=== PATIENT | female | born 1995 | race African-American/Black ===

== ENCOUNTER 2018-01-14 12:33 | Emergency (ER) | payer MEDICAID ==
[2018-01-14] MEDS ORDERED: LIDOCAINE 1% INJ-PF (10 MG/ML) 30 ML SDV INJ ONE (13:44)
[2018-01-14] MEDS ORDERED: AZITHROMYCIN 250 MG TABLET PO ONE (13:44)
[2018-01-14] MEDS ORDERED: CEFTRIAXONE INJ 250 MG VIAL IM ONE (13:44)
[2018-01-14 14:06] LABS: BACTERIA (WET MOUNT) 4+ BACTERIA SEEN; EPITHELIALS (WET MOUNT) 3+ EPITHELIALS SEEN; T.VAGINALIS (WET MOUNT) NO TRICHOMONAS SEEN; WBCS (WET MOUNT) FEW WBCS SEEN; YEAST (WET MOUNT) NO YEAST SEEN
[2018-01-14 14:07] LABS: APPEARANCE,URINE CLEAR; BILIRUBIN,URINE NEGATIVE (NEGATIVE); COLOR,URINE YELLOW; GLUCOSE, URINE NEGATIVE (NEGATIVE); KETONES,URINE NEGATIVE (NEGATIVE); LEUKOCYTE ESTERASE,URINE TRACE (NEGATIVE); NITRITE,URINE NEGATIVE (NEGATIVE); PROTEIN,URINE NEGATIVE (NEGATIVE); URINE SPECIFIC GRAVITY 1.023; UROBILINOGEN,URINE NEGATIVE mg/dL (<2.0)
--- NOTE | 2018-01-14 14:35 | ER Document Report ---
ED GI/ - General Chief Complaint: Vaginal Discharge Stated Complaint: STD CHECK/VAGINAL PAIN,ODOR Time Seen by Provider: 01/14/18 13:35 Mode of Arrival: Ambulatory Information source: Patient Notes: 22-year-old female presented ED for complaint of brownish vaginal discharge with some odor. She denies any pain. She states her Depo is due soon and she usually gets a little bloody discharge just before it is due. She is here because her significant other or baby father is complaining of penile discharge and pain. They are both here to get tested for STDs. TRAVEL OUTSIDE OF THE [place] IN LAST 30 DAYS: No - HPI Patient complains to provider of: Other - Vaginal discharge and odor Onset: Yesterday Timing/Duration: Gradual Quality of pain: No pain Vaginal bleeding (Compared to normal period): Spotting Sexual history: STD exposure Associated symptoms: Vaginal discharge Exacerbated by: Denies Relieved by: Denies Similar symptoms previously: Yes Recently seen / treated by doctor: No - Related Data Allergies/Adverse Reactions: No Known Allergies Allergy (Verified 01/14/18 12:34) Past Medical History - General Information source: Patient - Social History Smoking Status: Current Every Day Smoker Cigarette use (# per day): Yes - 3 Chew tobacco use (# tins/day): No Smoking Education Provided: Yes - 4 minutes Frequency of alcohol use: None Drug Abuse: None Lives with: Other - Her baby's father Family History: Reviewed & Not Pertinent Patient has suicidal ideation: No Patient has homicidal ideation: No - Past Medical History Cardiac Medical History: Reports: None Pulmonary Medical History: Reports: None EENT Medical History: Reports: None Neurological Medical History: Reports: None Endocrine Medical History: Reports: None Renal/ Medical History: Reports: None Malignancy Medical History: Reports: None GI Medical History: Reports: None Musculoskeltal Medical History: Reports None Skin Medical History: Reports None Psychiatric Medical History: Reports: None Traumatic Medical History: Reports: None Infectious Medical History: Reports: None Surgical Hx: Negative Past Surgical History: Reports: None Review of Systems - Review of Systems Gastrointestinal: No symptoms reported Genitourinary: No symptoms reported Female Genitourinary: Vaginal discharge, Vaginal odor Musculoskeletal: No symptoms reported Skin: No symptoms reported Physical Exam - Vital signs Vitals: Temp Pulse Resp BP Pulse Ox 98.5 F 94 16 147/79 H 98 01/14/18 12:38 01/14/18 12:38 01/14/18 12:38 01/14/18 12:38 01/14/18 12:38 - Abdominal Inspection: Normal Distension: No distension Bowel sounds: Normal Tenderness: Nontender Organomegaly: No organomegaly Notes: Patient states she has a vaginal odor and some spotting because her Depo shot is due soon. She denies any abdominal pain any vaginal pain any pelvic pain. Course - Re-evaluation Re-evalutation: 01/14/18 21:03 And was sent for a urinalysis and patient self swab for GC and chlamydia and wet mount. She was positive for bacterial vaginosis as well as gonorrhea. Patient was treated with Rocephin and azithromycin. Patient and her significant other both called back for results and were told that they were positive for gonorrhea. Both were instructed to abstain from any sexual intercourse for at least 7 days - Vital Signs Vital signs: Temp Pulse Resp BP Pulse Ox 97.8 F 84 18 151/93 H 100 01/14/18 14:37 01/14/18 14:37 01/14/18 14:37 01/14/18 14:37 01/14/18 14:37 - Laboratory Laboratory results interpreted by me: 01/14/18 01/14/18 13:30 13:30 Urine Blood SMALL H Ur Leukocyte Esterase TRACE H N.gonorrhoeae DNA (PCR) DETECTED H Discharge - Discharge Clinical Impression: Bacterial vaginosis, Concern about STD in female without diagnosis Condition: Stable Disposition: HOME, SELF-CARE Instructions: Family Physicians / Practices Additional Instructions: VAGINOSIS, BACTERIAL: Your exam shows you have bacterial vaginosis. This condition is due to an overgrowth of bacteria in the vagina. Symptoms may include vaginal itching or pain, a smelly discharge, and sometimes burning with urination. Normally this is not transmitted by sexual contact. Vaginosis can be treated with oral or topical antibiotics. Metronidazole ( Flagyl) pills are usually effective. Topical vaginal creams include Cleocin and Metro-Gel. You should avoid sexual contact until your symptoms are all better. Call the doctor if you develop pelvic pain, fever, or problems with urination, or if you don't improve as expected. CEPHALOSPORINS: An antibiotic of the cephalosporin class has been prescribed. This type of antibiotic covers a wide variety of infections, including those of the skin, lungs, middle ear, and urinary tract. This antibiotic is somewhat similar to the penicillin family. In rare cases , a person who is allergic to penicillin will also be allergic to this medication. If you have had a severe allergic reaction to penicillin, and have not taken this antibiotic since that time, notify your doctor. Antibiotics which cover many germs ("broad spectrum" antibiotics) are more likely to cause diarrhea or "yeast" infections. Women prone to vaginal yeast problems may suffer an attack after taking this antibiotic. In infants, oral thrush (white spots "stuck" on the cheek) or yeast diaper rash may result. See your doctor if these problems occur. Call the doctor at once if you develop hives, itching, shortness of breath , or lightheadedness. AZITHROMYCIN: Azithromycin (Zithromax) is a broad spectrum antibiotic in the same class as erythromycin. It can treat a variety of bacterial infections, but is most frequently used for respiratory infections. Azithromycin is extremely long-lasting. It accumulates in body tissues and continues to kill bacteria for many days. In order to improve absorption, Azithromycin should be taken at least one hour before or two hours after a meal. It does not have the same strong tendency to upset the stomach as erythromycin and is usually very well tolerated. Patients who have had a rash or other true allergic reactions to erythromycin should not take this medication. Call if you develop gastrointestinal distress, severe diarrhea, rash, hives, itching, or shortness of breath. METRONIDAZOLE: Metronidazole (Flagyl) has been prescribed. This medication is used to kill a type of bacteria called anaerobes, and protozoan parasites such as trichomonas and Giardia. Flagyl often causes a metallic taste in the mouth and mild nausea. Do not use alcohol in any form with Flagyl (including alcohol in medication elixirs). Flagyl interacts with alcohol to cause flushing, palpitations, headache, stomach cramps, and vomiting. Do not use Flagyl if you are taking Antabuse (disulfiram). Call the doctor at once if you develop rash, shortness of breath, itching, or lightheadedness. FOLLOW-UP CARE: If you have been referred to a physician for follow-up care, call the physician s office for an appointment as you were instructed or within the next two days. If you experience worsening or a significant change in your symptoms, notify the physician immediately or return to the Emergency Department at any time for re-evaluation. Prescriptions: Metronidazole [Flagyl 500 mg Tablet] 500 mg PO BID #14 tablet Forms: Elevated Blood Pressure, Smoking Cessation Education
[2018-01-14 14:40] VITALS: BP 151/93
[2018-01-14 15:31] LABS: CHLAM PCR NOT DETECTED (NOT DETECT); GON PCR DETECTED (NOT DETECT)
== END 2018-01-14 14:40 | disposition home or self-care (01) ==
LOC: ER 12:33
DX: N76.0 Acute vaginitis (principal); B96.89 Other specified bacterial agents as the cause of diseases classified elsewhere; Z20.2 Contact with and (suspected) exposure to infections with a predominantly sexual mode of transmission; F17.210 Nicotine dependence, cigarettes, uncomplicated
CPT/HCPCS: 99406; 99283; 96372; 87210; 81025; 81001; 87491; 87591; Q0144; J3490; J0696

== ENCOUNTER 2018-02-23 21:28 | Emergency (ER) | payer MEDICAID ==
[2018-02-24] MEDS ORDERED: AZITHROMYCIN 250 MG TABLET PO ONE (01:32)
[2018-02-24] MEDS ORDERED: CEFTRIAXONE INJ 250 MG VIAL IM ONE (01:33)
[2018-02-24] MEDS ORDERED: LIDOCAINE 1% INJ-PF (10 MG/ML) 30 ML SDV INFIL ONE (01:33)
--- NOTE | 2018-02-24 01:36 | ER Document Report ---
ED General - General Chief Complaint: STD Exposure Stated Complaint: POSSIBLE STD Time Seen by Provider: 02/23/18 23:18 Notes: Patient is a 23-year-old female presents with complaint of exposure to possible STD. Patient says that someone that she slept with an STD from his baby mamma. The patient herself is not her symptoms. No vaginal pain. No abnormal discharge or bleeding. She does have a previous history of STDs. No other complaints this time. No fevers. No pelvic or abdominal pain. TRAVEL OUTSIDE OF THE [place] IN LAST 30 DAYS: No - Related Data Allergies/Adverse Reactions: No Known Allergies Allergy (Verified 02/24/18 00:42) Past Medical History - Social History Smoking Status: Current Every Day Smoker Frequency of alcohol use: None Drug Abuse: None Family History: Reviewed & Not Pertinent Patient has suicidal ideation: No Patient has homicidal ideation: No Renal/ Medical History: Denies: Hx Peritoneal Dialysis Review of Systems - Review of Systems Notes: My Normal Review Basic REVIEW OF SYSTEMS: CONSTITUTIONAL : Denies fever, chills, or sweats. Denies recent illness. GASTROINTESTINAL: Denies abdominal pain. Denies nausea, vomiting, or diarrhea. Denies constipation. Last BM: GENITOURINARY: Denies difficulty urinating, painful urination, burning, frequency, or blood in urine. FEMALE GENITOURINARY: Denies vaginal bleeding, abnormal or irregular periods. MUSCULOSKELETAL: Denies neck or back pain or joint pain or swelling. SKIN: Denies rash or skin lesions. NEUROLOGICAL: Denies altered mental status or loss of consciousness. ALL OTHER SYSTEMS REVIEWED AND NEGATIVE. Physical Exam - Vital signs Vitals: Temp Pulse Resp BP Pulse Ox 98.1 F 110 H 18 129/68 H 98 02/23/18 21:49 02/23/18 21:49 02/23/18 21:49 02/23/18 21:49 02/23/18 21:49 - Notes Notes: General Appearance: Well nourished, alert, cooperative, no acute distress, no obvious discomfort. Vitals: reviewed, See vital signs table. Abdomen: Normal BS, soft, No rigidity, No abdominal tenderness, No guarding, no rebound, Neuro: speech clear, oriented x 3, normal affect, responds appropriately to questions. Course - Re-evaluation Re-evalutation: 02/24/18 04:42 Patient did not want to wait the prolonged period time for her labs come back. She preferred to be prophylactically treated. I did give her the culture callback number to call to get her results. We did treat her with Rocephin and azithromycin. Patient has no symptoms at this time. Patient to return to the ER if she has fevers, pelvic pain, or any abnormal discharge. Patient agrees with plan and will be discharged home. Dictation of this chart was performed using voice recognition software; therefore, there may be some unintended grammatical errors. - Vital Signs Vital signs: Temp Pulse Resp BP Pulse Ox 98.4 F 86 18 140/78 H 100 02/24/18 01:54 02/24/18 01:54 02/23/18 21:49 02/24/18 01:54 02/24/18 01:54 Discharge - Discharge Clinical Impression: STD exposure Condition: Good Disposition: HOME, SELF-CARE Additional Instructions: The testing for the transmitted diseases pending. Please call the #[phone] to obtain results of your testing. You have been treated for gonorrhea chlamydia. Therefore, if Gonorrhea or chlamydia testing is positive for very been treated. If you are positive please inform your sexual partners or partner so that they may be treated and tested as well. Return to the ER for fevers, abnormal vaginal discharge, or pelvic pain.
[2018-02-24 01:39] LABS: CHLAM PCR NOT DETECTED (NOT DETECT); GON PCR NOT DETECTED (NOT DETECT)
[2018-02-24 02:10] VITALS: BP 140/78
== END 2018-02-24 02:13 | disposition home or self-care (01) ==
LOC: ER 21:28
DX: Z20.2 Contact with and (suspected) exposure to infections with a predominantly sexual mode of transmission (principal); F17.200 Nicotine dependence, unspecified, uncomplicated
CPT/HCPCS: 99283; 96372; 87491; 87591; Q0144; J3490; J0696

== ENCOUNTER 2018-06-17 05:46 | Emergency (ER) | payer MEDICAID ==
--- NOTE | 2018-06-17 06:47 | ER Document Report ---
ED General - General Chief Complaint: Vaginal Bleeding Stated Complaint: VAGINAL BLEEDING Time Seen by Provider: 06/17/18 06:15 Notes: Patient is a 23-year-old female that presents to the emergency department for chief complaint of vaginal bleeding and pelvic cramping. Patient states that she started having menstrual bleeding early this morning, and pelvic cramping for most the day yesterday. She states she is usually on Depakote shots for contraception, but has missed her dose last on should have been in the beginning of April which she was unable to get to it has not had one since then. She does not know when her last normal menstrual period is and she thinks she may be , but her last test she took about 1 week ago and that was negative according to the patient. She had some lower abdominal cramping and pelvic pain, she described as an aching sensation and a 3 out of 10, which is now essentially resolved. She denies any vaginal discharge, dysuria hematuria. Denies any fevers, chills, night sweats, nausea, vomiting. Past Medical History: Denies chronic medical conditions Past Surgical History: Denies surgical history Social History: Denies tobacco, alcohol or drug use Family History: Reviewed and noncontributory for presenting illness Allergies: Reviewed, see documented allergy list. REVIEW OF SYSTEMS: Other than noted above, the 12 point review of systems was reviewed with the patient and were negative, all pertinent findings are included in the HPI. PHYSICAL EXAMINATION: Vital signs reviewed, nursing noted reviewed. GENERAL: Well-appearing, well-nourished and in no acute distress. HEAD: Atraumatic, normocephalic. EYES: Eyes appear normal, extraocular movements intact, sclera anicteric, conjunctiva are normal. ENT: nares patent, oropharynx clear without exudates. Moist mucous membranes. NECK: Normal range of motion, supple without lymphadenopathy LUNGS: Breath sounds clear to auscultation bilaterally and equal. No wheezes rales or rhonchi. HEART: Regular rate and rhythm without murmurs ABDOMEN: Soft, nontender, normoactive bowel sounds. No rebound, guarding, or rigidity. No masses appreciated. EXTREMITIES: Nontender, good range of motion, no pitting or edema. NEUROLOGICAL: No focal neurological deficits. Moves all extremities spontaneously Motor and sensory grossly intact on exam. PSYCH: Normal mood, normal affect. SKIN: Warm, Dry, normal turgor, no rashes or lesions noted on exposed skin TRAVEL OUTSIDE OF THE [place] IN LAST 30 DAYS: No - Related Data Allergies/Adverse Reactions: No Known Allergies Allergy (Verified 02/24/18 00:42) Past Medical History - Social History Smoking Status: Never Smoker Family History: Reviewed & Not Pertinent Renal/ Medical History: Denies: Hx Peritoneal Dialysis Physical Exam - Vital signs Vitals: Temp Pulse Resp BP Pulse Ox 98.4 F 102 H 16 146/77 H 94 06/17/18 05:50 06/17/18 05:50 06/17/18 05:50 06/17/18 05:50 06/17/18 05:50 Course - Re-evaluation Re-evalutation: Patient seen and examined vital signs reviewed. Laboratory data and imaging were ordered as appropriate for the patient's presenting symptoms and complaint, with consideration of any critical or life threatening conditions that may be associated with their obtained history and exam as noted above. Results were reviewed when available and demonstrated negative hCG testing in the blood, and her pelvic ultrasound was unremarkable, possible uterine calcification, but would not explain her symptoms, believe the patient is having regular menstrual bleeding, she has been off Depo-Provera shot, she is likely having return of normal menstrual cycles. The patient was re-evaluated and was stable Evaluation was most consistent with menorrhagia, advised follow-up with COUNSELING CASE MANAGER. Results were discussed with the patient at this point, after careful consideration I feel that that patient can be discharged from the emergency department, the patient was educated treatments and reasons to return to the emergency department based on their presumed diagnosis as noted above, they were advised to followup with a primary care physician in 2-3 days. Patient was agreeable to plan of care. *Note is created using voice recognition software and may contain spelling, syntax or grammatical errors. Laboratory 06/17/18 06:37 Beta HCG, Quant < 2.39 Total Beta HCG NEGATIVE Transvaginal US 06/17/18 06:26 IMPRESSION: 1. Suspect small calcification within the myometrium. 2. Otherwise, unremarkable pelvic ultrasound. There is a dominant follicle arising from the right ovary with a maximum dimension of 3.8 cm. No follow-up imaging is recommended. - Vital Signs Vital signs: Temp Pulse Resp BP Pulse Ox 97.9 F 88 16 141/74 H 100 06/17/18 08:41 06/17/18 08:41 06/17/18 05:50 06/17/18 08:41 06/17/18 08:41 - Laboratory Laboratory results interpreted by me: 06/17/18 07:48 Urine Protein 30 H Urine Blood LARGE H Urine Urobilinogen 2.0 H Discharge - Discharge Clinical Impression: Vaginal bleeding Condition: Stable Disposition: HOME, SELF-CARE Instructions: Vaginal Bleeding ([facility]) Additional Instructions: Please follow-up with your COUNSELING CASE MANAGER, monitor for symptoms such as lightheadedness , dizziness, or feeling like you may pass out, if you develop these symptoms, please return to the emergency department sooner. Referrals: [facility] [Provider Group] - Follow up in 3-5 days
--- NOTE | 2018-06-17 07:44 | RADIOLOGY REPORT (SQ) ---
CLINICAL DATA: 23-year-old female with vaginal bleeding and pelvic pain. TECHNICAL DATA: Transvaginal imaging of the pelvis was performed. There are no comparisons. FINDINGS: The uterus is grossly normal in size, shape and echogenicity and measures 9.8 x 6.2 x 4.8 cm. The endometrial complex measures 1.1 cm in thickness. There is no endometrial fluid. There is a small curvilinear area of increased echogenicity within the myometrium with associated posterior acoustical shadowing possibly representing a calcification. The right ovary measures 4.7 x 5.8 x 3.7 cm. The right ovary contains a dominant simple appearing cyst measuring approximately 3.8 x 3.3 x 3.8 cm. This is likely a dominant follicle. Doppler imaging demonstrates normal pulsed and color Doppler flow. The left ovary measures 2.8 x 1.8 x 2.4 cm. The left ovary contains normal follicles. Doppler imaging demonstrates normal pulsed and color Doppler flow. There is no free fluid in the pelvis. The cervix measures 3.9 cm in length. IMPRESSION: 1. Suspect small calcification within the myometrium. 2. Otherwise, unremarkable pelvic ultrasound. There is a dominant follicle arising from the right ovary with a maximum dimension of 3.8 cm. No follow-up imaging is recommended.
[2018-06-17 08:15] LABS: APPEARANCE,URINE SLIGHTLY-CLOUDY; BILIRUBIN,URINE NEGATIVE (NEGATIVE); COLOR,URINE YELLOW; GLUCOSE, URINE NEGATIVE (NEGATIVE); KETONES,URINE NEGATIVE (NEGATIVE); LEUKOCYTE ESTERASE,URINE NEGATIVE (NEGATIVE); NITRITE,URINE NEGATIVE (NEGATIVE); PROTEIN,URINE 30 mg/dL (NEGATIVE); URINE SPECIFIC GRAVITY 1.024
[2018-06-17 08:43] VITALS: BP 141/74
== END 2018-06-17 09:03 | disposition home or self-care (01) ==
LOC: ER 05:46
DX: N93.8 Other specified abnormal uterine and vaginal bleeding (principal); R10.2 Pelvic and perineal pain
CPT/HCPCS: 36415; 76830; 81001; 84702; 93976; 99284

== ENCOUNTER 2018-12-12 15:57 | Emergency (ER) | payer MEDICAID ==
[2018-12-12] MEDS ORDERED: NORMAL SALINE 1000 ML 1,000 ML IV ONE (17:09)
[2018-12-12] MEDS ORDERED: ACETAMINOPHEN 325 MG TABLET PO ONE ×2 (17:09→22:51)
--- NOTE | 2018-12-12 17:13 | ER Document Report ---
ED Medical Screen (RME) - General Chief Complaint: Headache Stated Complaint: BODY PAIN Time Seen by Provider: 12/12/18 17:07 TRAVEL OUTSIDE OF THE [place] IN LAST 30 DAYS: No - HPI Notes: 12/12/18 17:10 Patient is a 23-year-old female with no significant past medical history and no drug allergies who presents complaining of fever, headache, neck pain, back pain that began yesterday about 24 hours ago. Patient states that movement of her head and rotation and flexion make the pain in her neck, back, and had worse. She is still able to eat and drink, but does have a decreased p.o. intake. She is urinating normally and having normal bowel movements. No other recent illness. Patient states that she lives in an apartment complex. She has not been to residential and has not been on airplane recently. No known tick bite. She has not been in the [employer]. Denies URI, CP, SOB, Abd pain, n/v/d, dysuria, or rash. I have treated and performed a rapid initial assessment of this patient. A comprehensive ED assessment and evaluation of the patient, analysis of test results and completion of medical decision making process will be conducted by additional ED providers. PHYSICAL EXAMINATION: GENERAL: Well-appearing, well-nourished and in no acute distress. A&Ox4. Answers questions appropriately. Neck: + tenderness with flexion and lateral rotation. LUNGS: Breath sounds clear to auscultation bilaterally and equal. No wheezes rales or rhonchi. HEART: Regular rate and rhythm without murmurs, rubs, gallops. NEUROLOGICAL: Normal speech, normal gait. PSYCH: Normal mood, normal affect. - Related Data Allergies/Adverse Reactions: No Known Allergies Allergy (Verified 02/24/18 00:42) Past Medical History Renal/ Medical History: Denies: Hx Peritoneal Dialysis Physical Exam - Vital signs Vitals: Temp Pulse Resp BP Pulse Ox 101.0 F H 103 H 20 134/70 H 100 12/12/18 16:38 12/12/18 16:38 12/12/18 16:38 12/12/18 16:38 12/12/18 16:38 Course - Vital Signs Vital signs: Temp Pulse Resp BP Pulse Ox 101.0 F H 103 H 20 134/70 H 100 12/12/18 16:38 12/12/18 16:38 12/12/18 16:38 12/12/18 16:38 12/12/18 16:38
--- NOTE | 2018-12-12 17:52 | RADIOLOGY REPORT (SQ) ---
EXAM DESCRIPTION: CHEST SINGLE VIEW COMPLETED DATE/TIME: 12/12/2018 5:38 pm REASON FOR STUDY: fever COMPARISON: None. EXAM PARAMETERS: NUMBER OF VIEWS: One view. TECHNIQUE: Single frontal radiographic view of the chest acquired. RADIATION DOSE: NA LIMITATIONS: None. FINDINGS: LUNGS AND PLEURA: No opacities, masses or pneumothorax. No pleural effusion. MEDIASTINUM AND HILAR STRUCTURES: No masses. Contour normal. HEART AND VASCULAR STRUCTURES: Heart normal in size. Normal vasculature. BONES: No acute findings. HARDWARE: None in the chest. OTHER: No other significant finding. IMPRESSION: NO ACUTE RADIOGRAPHIC FINDING IN THE CHEST. TECHNICAL DOCUMENTATION: JOB ID: [id number] [employer]- All Rights Reserved Reading location - IP/workstation name: [email or web address]
[2018-12-12 18:07] LABS: ABSOLUTE LYMPHOCYTES (AUTO) 1.3 10^3/uL (0.5-4.7); ABSOLUTE MONOCYTES (AUTO) 0.4 10^3/uL (0.1-1.4); ABSOLUTE NEUT (AUTO) 4.2 10^3/uL (1.7-8.2); BASOPHILS % (AUTO) 0.2 % (0-2); EOSINOPHILS % (AUTO) 0.5 % (0-6); HEMATOCRIT 39.8 % (36.0-47.0); LYMPHOCYTES % (AUTO) 21.2 % (13-45); MEAN CORPUSCULAR HEMOGLOBIN 24.8 pg (27.0-33.4); MEAN CORPUSCULAR HGB CONC 32.6 g/dL (32.0-36.0); MEAN CORPUSCULAR VOLUME 76 fl (80-97); MONOCYTES % (AUTO) 7.1 % (3-13); PLATELET COUNT 354 10^3/uL (150-450); RED BLOOD COUNT 5.23 10^6/uL (3.72-5.28); RED CELL DISTRIBUTION WIDTH 15.5 % (11.5-14.0); TOTAL CELLS COUNTED % (AUTO) 100 %
[2018-12-12 18:21] LABS: ALANINE AMINOTRANSFERASE 28 U/L (9-52); ALBUMIN 3.6 g/dL (3.5-5.0); ALKALINE PHOSPHATASE 54 U/L (38-126); ANION GAP 9 (5-19); ASPARTATE AMINO TRANSFERASE 23 U/L (14-36); BILIRUBIN,DIRECT 0.2 mg/dL (0.0-0.4); BILIRUBIN,TOTAL 0.9 mg/dL (0.2-1.3); BLOOD UREA NITROGEN 5 mg/dL (7-20); CALCIUM 9.4 mg/dL (8.4-10.2); CARBON DIOXIDE 24 mmol/L (22-30); CHLORIDE 107 mmol/L (98-107); GLUCOSE 96 mg/dL (75-110); SODIUM 140.1 mmol/L (137-145); TOTAL PROTEIN 6.5 g/dL (6.3-8.2)
[2018-12-12 18:38] LABS: APPEARANCE,URINE CLEAR; BILIRUBIN,URINE NEGATIVE (NEGATIVE); COLOR,URINE YELLOW; GLUCOSE, URINE NEGATIVE (NEGATIVE); KETONES,URINE NEGATIVE (NEGATIVE); LEUKOCYTE ESTERASE,URINE NEGATIVE (NEGATIVE); NITRITE,URINE NEGATIVE (NEGATIVE); PROTEIN,URINE NEGATIVE (NEGATIVE); URINE SPECIFIC GRAVITY 1.013
--- NOTE | 2018-12-12 22:15 | ER Document Report ---
ED Headache - General Chief Complaint: Headache Stated Complaint: BODY PAIN Time Seen by Provider: 12/12/18 17:07 TRAVEL OUTSIDE OF THE [place] IN LAST 30 DAYS: No - HPI Notes: Patient is a 23-year-old female who presents to the emergency department with a chief complaint of headache. Patient states that 2 days ago she developed a gradual onset of a frontal headache that has been intermittent at times but now more constant. Patient states she has not taken anything at home for her headache. Patient denies any nausea or vomiting. Patient states she has had a decreased appetite because of the pain. Patient denies diarrhea. Patient does complain of neck and mid back pain. Patient denies photosensitivity. Patient states that loud noises seem to worsen the headache. Patient denies joint pain but states yesterday had an episode of "tightening to the top of my right foot which appeared to be muscle related." Patient states that she lives in an apartment complex and has not noticed any bites or rash. Patient states that she does not go anywhere and stays primarily in her apartment. Patient denies being outside for long periods of time or wounds. Patient denies history of migraine headaches. Denies change in vision. - Related Data Allergies/Adverse Reactions: No Known Allergies Allergy (Verified 02/24/18 00:42) Past Medical History - General Information source: Patient - Social History Smoking Status: Unknown if Ever Smoked Cigarette use (# per day): No Chew tobacco use (# tins/day): No Frequency of alcohol use: None Drug Abuse: None Lives with: Spouse/Significant other Family History: Reviewed & Not Pertinent Patient has suicidal ideation: No Patient has homicidal ideation: No - Medical History Medical History: Negative - Past Medical History Cardiac Medical History: Reports: None Pulmonary Medical History: Reports: None EENT Medical History: Reports: None Neurological Medical History: Reports: None Endocrine Medical History: Reports: None Renal/ Medical History: Reports: None. Denies: Hx Peritoneal Dialysis Malignancy Medical History: Reports: None GI Medical History: Reports: None Musculoskeletal Medical History: Reports None Skin Medical History: Reports None Psychiatric Medical History: Reports: None Traumatic Medical History: Reports: None Infectious Medical History: Reports: None Surgical Hx: Negative Past Surgical History: Reports: None Review of Systems - Review of Systems Constitutional: See HPI EENT: See HPI Cardiovascular: No symptoms reported Respiratory: No symptoms reported Gastrointestinal: No symptoms reported Genitourinary: No symptoms reported Female Genitourinary: No symptoms reported Musculoskeletal: See HPI Skin: No symptoms reported Hematologic/Lymphatic: No symptoms reported Neurological/Psychological: No symptoms reported Physical Exam - Vital signs Vitals: Temp Pulse Resp BP Pulse Ox 101.0 F H 103 H 20 134/70 H 100 12/12/18 16:38 12/12/18 16:38 12/12/18 16:38 12/12/18 16:38 12/12/18 16:38 Interpretation: Tachycardic, Febrile - Notes Notes: GENERAL: Well-appearing, well-nourished and in no acute distress. HEAD: Atraumatic, normocephalic. EYES: Pupils equal round and reactive to light, extraocular movements intact, sclera anicteric, conjunctiva are normal. ENT: Right TM slightly reddened - landmarks visible without discharge, perforation or bulging, Left TM normal, nares patent, oropharynx clear without exudates. Moist mucous membranes. NECK: Full ROM, pain to neck with flexion (flexion of neck also induced pain to mid back), no nuchal rigidity, supple without lymphadenopathy or JVD. LUNGS: Breath sounds clear to auscultation bilaterally and equal. No wheezes rales or rhonchi. HEART: Regular rate and rhythm without murmurs, rubs or gallops. ABDOMEN: Soft, nontender, normoactive bowel sounds. No guarding, no rebound. No masses appreciated. EXTREMITIES: Normal range of motion, no pitting or edema. No clubbing or cyanosis. + 2 strong dorsalis pedis pulses bilaterally. NEUROLOGICAL: Cranial nerves II through XII grossly intact. Normal speech, normal gait. PSYCH: Normal mood, normal affect. SKIN: Warm, Dry, normal turgor, no rashes or lesions noted. Face symmetric. Tongue protrudes midline. Extraocular motions intact. Pupils are 3 mm and equally reactive. Normal speech, normal gait. 5 out of 5 strength in both the distal and proximal upper and lower extremities bilaterally. Sensation is grossly intact throughout. Finger to nose testing normal. Pronator drift normal. Normal heal to jade coordination bilaterally. Course - Re-evaluation Re-evalutation: 12/12/18 22:00 Patient's physical assessment was overall benign, patient did have pain with neck flexion which was relieved in normal position. Patient was negative for nuchal rigidity. Patient continues to complain of a headache 3 out of 5 although she states it is much better than earlier. Offered patient IV pain medications. Patient states that she does not want this at this time but will take Tylenol. Informed patient that to rule out possibility of viral or bacterial meningitis a lumbar puncture is recommended as she is having headache with fever. Informed patient that meningitis is potentially life threatening if not treated and depending on the type. Patient states that she does not want a lumbar puncture at this time although she is aware that this is the only way to rule out meningitis. Also informed patient that even though she has not seen any bite milligan or rash she could potentially have [place] spotted fever. Informed patient that the treatment for this is a 2-week dose of the doxycycline. Informed patient that if we did the blood work it would not come back until later next week but that treatment would be initiated. Patient denies wanting blood work but states she will take the doxycycline. Informed patient that it is vital that she returns to the emergency department if her headache becomes severe, she has altered level of consciousness or disorientation, fever, vomiting, no improvement after 24 to 48 hours on doxycycline, or any other new or concerning signs or symptoms. Take Tylenol as needed for pain. We will give first dose of doxycycline in the emergency department after test has resulted. Patient is resting on stretcher appears to be in no acute distress, is texting on her cell phone, patient's overall appearance is nontoxic at this time. Patient did have significant other at the bedside during this conversation. Patient placed on strict return precautions. - Vital Signs Vital signs: Temp Pulse Resp BP Pulse Ox 99.0 F 92 18 145/65 H 100 12/12/18 23:10 12/12/18 23:10 12/12/18 23:10 12/12/18 23:10 12/12/18 23:10 - Laboratory Result Diagrams: 12/12/18 17:30 12/12/18 17:30 Laboratory results interpreted by me: 12/12/18 12/12/18 12/12/18 17:30 17:30 18:25 MCV 76 L MCH 24.8 L RDW 15.5 H BUN 5 L Urine Urobilinogen 4.0 H Urine Ascorbic Acid 40 H 12/13/18 CBC, CMP and urinalysis unremarkable. There was no noted leukocytosis. No signs of a urinary tract infection. - Diagnostic Test Radiology reviewed: Reports reviewed Discharge - Discharge Clinical Impression: Fever Qualifiers: Fever type: unspecified Qualified Code(s): R50.9 - Fever, unspecified Headache Qualifiers: Headache type: unspecified Headache chronicity pattern: acute headache Condition: Stable Disposition: HOME, SELF-CARE Additional Instructions: Today you were seen in the emergency department for headache and fever. Your lab work was unremarkable but it is unsure what is causing your headache fever. After long conversation we have offered you a lumbar puncture to rule out viral or bacterial meningitis. You have politely declined this or any other life th reatening diagnoses that we would need to obtain further testing for. We have also discussed the possibility of [place] spotted fever. At this time you do not want the blood work that tests for this. Instead we have decided to treat you with doxycycline for 2 weeks. It is imperative that you return to the emergency department for any worsening symptoms to include altered level of consciousness, severe headache, vomiting, high fevers, or any other concerning signs or symptoms. If you develop a fever, if the headache is different from any you've previously experienced, or if the headache progressively worsens, then call your physician at once or go to the emergency room. Prescriptions: Doxycycline Hyclate 100 mg PO BID #14 capsule Doxycycline Hyclate 100 mg PO BID #28 capsule
[2018-12-12] MEDS ORDERED: DOXYCYCLINE HYCLATE 100 MG TABLET PO ONE (22:51)
[2018-12-12 23:12] VITALS: BP 145/65
== END 2018-12-12 23:10 | disposition home or self-care (01) ==
LOC: ER 15:57
DX: R50.9 Fever, unspecified (principal); R51 Headache; M79.10 Myalgia, unspecified site; M54.2 Cervicalgia; M54.6 Pain in thoracic spine
CPT/HCPCS: 99283; 96360; 36415; 87040; 87086; 85025; 81025; 80053; 81001; 83605; 71045; J3490 ×2; J7030

== ENCOUNTER 2018-12-13 10:40 | Inpatient (IN) | payer MEDICAID ==
--- NOTE | 2018-12-13 10:53 | ER Document Report ---
ED Medical Screen (RME) - General Chief Complaint: Fever Stated Complaint: BODYACHE Time Seen by Provider: 12/13/18 10:51 Mode of Arrival: Ambulatory Information source: Patient Notes: 23-year-old female presented today for continued fever chills body aches headache neck and back pain. She states she was told yesterday when she came to the ER that she needed a spinal tap but she refused yesterday. She states she went home and she thought about it and realized that she should get the spinal tap completed. She is come back today to get the spinal tap that was recommended. I have greeted and performed a rapid initial assessment of this patient. A comprehensive ED assessment and evaluation of the patient, analysis of test results and completion of medical decision making process will be conducted by an additional ED providers. Dictation of this chart was performed using voice recognition software; therefore, there may be some unintended grammatical errors. TRAVEL OUTSIDE OF THE [place] IN LAST 30 DAYS: No - Related Data Allergies/Adverse Reactions: No Known Allergies Allergy (Verified 12/13/18 10:41) Past Medical History Renal/ Medical History: Denies: Hx Peritoneal Dialysis Physical Exam - Vital signs Vitals: Temp Pulse Resp BP Pulse Ox 98.5 F 115 H 18 146/69 H 99 12/13/18 10:44 12/13/18 10:44 12/13/18 10:44 12/13/18 10:44 12/13/18 10:44 Course - Vital Signs Vital signs: Temp Pulse Resp BP Pulse Ox 98.5 F 115 H 18 146/69 H 99 12/13/18 10:44 12/13/18 10:44 12/13/18 10:44 12/13/18 10:44 12/13/18 10:44
[2018-12-13 11:18] LABS: ABSOLUTE EOSINOPHILS # (AUTO) 0.1 10^3/uL (0.0-0.6); ABSOLUTE LYMPHOCYTES (AUTO) 1.6 10^3/uL (0.5-4.7); ABSOLUTE MONOCYTES (AUTO) 0.4 10^3/uL (0.1-1.4); ABSOLUTE NEUT (AUTO) 2.1 10^3/uL (1.7-8.2); BASOPHILS % (AUTO) 0.5 % (0-2); EOSINOPHILS % (AUTO) 1.3 % (0-6); HEMATOCRIT 39.2 % (36.0-47.0); HEMOGLOBIN 12.8 g/dL (12.0-15.5); LYMPHOCYTES % (AUTO) 39.6 % (13-45); MEAN CORPUSCULAR HGB CONC 32.6 g/dL (32.0-36.0); MEAN CORPUSCULAR VOLUME 77 fl (80-97); MONOCYTES % (AUTO) 8.9 % (3-13); PLATELET COUNT 340 10^3/uL (150-450); RED BLOOD COUNT 5.13 10^6/uL (3.72-5.28); RED CELL DISTRIBUTION WIDTH 15.5 % (11.5-14.0); SEGMENTED NEUTROPHILS % (AUTO) 49.7 % (42-78); TOTAL CELLS COUNTED % (AUTO) 100 %; WHITE BLOOD COUNT 4.1 10^3/uL (4.0-10.5)
[2018-12-13 11:31] LABS: ALANINE AMINOTRANSFERASE 26 U/L (9-52); ALBUMIN 3.8 g/dL (3.5-5.0); ALKALINE PHOSPHATASE 58 U/L (38-126); ANION GAP 9 (5-19); ASPARTATE AMINO TRANSFERASE 21 U/L (14-36); BILIRUBIN,DIRECT 0.2 mg/dL (0.0-0.4); BLOOD UREA NITROGEN 4 mg/dL (7-20); CALCIUM 9.5 mg/dL (8.4-10.2); CARBON DIOXIDE 24 mmol/L (22-30); CHLORIDE 109 mmol/L (98-107); GLUCOSE 131 mg/dL (75-110); POTASSIUM 3.6 mmol/L (3.6-5.0); SODIUM 142.4 mmol/L (137-145); TOTAL PROTEIN 6.1 g/dL (6.3-8.2)
[2018-12-13] MEDS ORDERED: LIDOCAINE 1% INJ-PF (10 MG/ML) 30 ML SDV INJ ONE (11:37)
[2018-12-13] MEDS ORDERED: FENTANYL CITRATE INJ/PF 100 MCG/2 ML AMPUL IV ONE ×2 (12:28→13:03)
[2018-12-13] MEDS ORDERED: LORAZEPAM INJ 2 MG/1 ML VIAL IV ONE (12:29)
[2018-12-13] MEDS ORDERED: FENTANYL CITRATE INJ/PF 100 MCG/2 ML AMPUL ONE (12:57)
[2018-12-13] MEDS ORDERED: RINGERS SOLUTION,LACTATED 1,000 ML IV ONE (13:13)
[2018-12-13] MEDS ORDERED: CEFTRIAXONE 1 GM/D5W RTU 1 GM/50 ML RTUPB IV ONE ×2 (13:13→16:14)
--- NOTE | 2018-12-13 13:33 | ER Document Report ---
Addendum entered and electronically signed by KISHA SERRATO PA-C 12/14/18 19:15: Physical Exam - Physical Exam Vital Signs: Temp Pulse Resp BP Pulse Ox 98.7 F 96 16 143/77 H 100 12/14/18 15:11 12/14/18 15:11 12/14/18 15:11 12/14/18 15:11 12/14/18 15:11 Intake & Output 12/13/18 12/14/18 12/15/18 06:59 06:59 06:59 Intake Total 1050 Balance 1050 Weight 97.9 kg Exam: GENERAL: Alert, interacts well. No acute distress. HEAD: Normocephalic, atraumatic. EYES: Pupils equal, round, and reactive to light. Extraocular movements intact. ENT: Oral mucosa moist, tongue midline. Nares patent, no nasal septal hematoma, TM's intact, nonerythematous, nonbulging bilaterally. Pharynx within normal limits no palatal petechiae noted NECK: Full range of motion despite with pain when patient puts her chin on her chest.. Supple. Trachea midline. LUNGS: Clear to auscultation bilaterally, no wheezes, rales, or rhonchi. No respiratory distress. HEART: Regular rate and rhythm. No murmur ABDOMEN: Soft, non-tender. Non-distended. Bowel sounds present in all 4 quadrants. EXTREMITIES: Moves all 4 extremities spontaneously. No edema, normal radial and dorsalis pedis pulses bilaterally. No cyanosis. BACK: no cervical, thoracic, lumbar midline tenderness. No saddle anesthesia, normal distal neurovascular exam. NEUROLOGICAL: Alert and oriented x3. Normal speech. cranial nerves II through XII grossly intact. PSYCH: Normal affect, normal mood. SKIN: Warm, dry, normal turgor. No rashes or lesions noted. Addendum entered and electronically signed by KISHA SERRATO PA-C 12/14/18 19:14: ED General - General Chief Complaint: Fever Stated Complaint: BODYACHE Time Seen by Provider: 12/13/18 10:51 Mode of Arrival: Ambulatory Notes: Note from Provider seeing the pt. yesterday: Patient is a 23-year-old female who presents to the emergency department with a chief complaint of headache. Patient states that 2 days ago she developed a gradual onset of a frontal headache that has been intermittent at times but now more constant. Patient states she has not taken anything at home for her headache. Patient denies any nausea or vomiting. Patient states she has had a decreased appetite because of the pain. Patient denies diarrhea. Patient does complain of neck and mid back pain. Patient denies photosensitivity. Patient states that loud noises seem to worsen the headache. Patient denies joint pain but states yesterday had an episode of "tightening to the top of my right foot which appeared to be muscle related." Patient states that she lives in an apartment complex and has not noticed any bites or rash. Patient states that she does not go anywhere and stays primarily in her apartment. Patient denies being outside for long periods of time or wounds. Patient denies history of migraine headaches. Denies change in vision. MY HPI: Same as above. Patient states she went home and thought about it and feels as though she should get the lumbar puncture. Patient's denying any fevers currently states she did take Tylenol this morning so she is unsure if she had a fever. Patient continues to complain of generalized headaches frontal nature and also in her cervical region. Patient continues to complain of nuchal rigidity and pain when she puts her chin to her chest. Patient otherwise appears nontoxic and is cooperating well with staff. TRAVEL OUTSIDE OF THE [place] IN LAST 30 DAYS: No - Related Data Allergies/Adverse Reactions: No Known Allergies Allergy (Verified 12/13/18 10:41) Original Note: ED General <DEVIN RICH - Last Filed: 12/13/18 13:36> - General Mode of Arrival: Ambulatory TRAVEL OUTSIDE OF THE [place] IN LAST 30 DAYS: No <KISHA SERRATO - Last Filed: 12/13/18 16:56> - General Chief Complaint: Fever Stated Complaint: BODYACHE Time Seen by Provider: 12/13/18 10:51 - Related Data Allergies/Adverse Reactions: No Known Allergies Allergy (Verified 12/13/18 10:41) Past Medical History - General Information source: Patient - Social History Smoking Status: Never Smoker Family History: Reviewed & Not Pertinent Patient has suicidal ideation: No Patient has homicidal ideation: No Renal/ Medical History: Denies: Hx Peritoneal Dialysis <KISHA SERRATO - Last Filed: 12/13/18 16:56> - Vital signs Vitals: Temp Pulse Resp BP Pulse Ox 98.5 F 115 H 18 146/69 H 99 12/13/18 10:44 12/13/18 10:44 12/13/18 10:44 12/13/18 10:44 12/13/18 10:44 Course - Laboratory Result Diagrams: 12/13/18 10:59 12/13/18 10:59 <DEVIN RICH - Last Filed: 12/13/18 13:36> - Laboratory Result Diagrams: 12/13/18 10:59 12/13/18 10:59 <KSIHA SERRATO - Last Filed: 12/13/18 16:56> - Re-evaluation Re-evalutation: 12/13/18 13:36 Patient was seen and evaluated as requested by [facility]. Patient is a 23-year-old female that reports 3 days of fever with T-max of 102 with associated headache, neck pain and back pain. Denies known exposure to meningitis. Is up-to-date with immunizations. PHYSICAL EXAMINATION: GENERAL: Well-appearing, well-nourished and in no acute distress. HEAD: Atraumatic, normocephalic. EYES: Pupils equal round extraocular movements intact, conjunctiva are normal. ENT: Nares patent NECK: Normal range of motion LUNGS: No respiratory distress Musculoskeletal: Normal range of motion NEUROLOGICAL: Normal speech, normal gait. PSYCH: Normal mood, normal affect. SKIN: Warm, Dry, normal turgor, no rashes or lesions noted. Patient was given fentanyl, Versed prior to lumbar puncture. Multiple attempts at patient's lumbar puncture were performed using multiple spinal needles. Lumbar puncture was unsuccessful. We did attempt to call interventional rad iology which is not hospital today. I did speak to Dr. Zapien anesthesiologist who has agreed to attempt lumbar puncture. She is coming in from home. (DEVIN RICH) 12/13/18 13:33 Discussed case with anesthesia who will come to the emergency department to attempt a lumbar puncture. (KISHA SERRATO) - Vital Signs Vital signs: Temp Pulse Resp BP Pulse Ox 98.5 F 115 H 18 146/69 H 99 12/13/18 10:44 12/13/18 10:44 12/13/18 10:44 12/13/18 10:44 12/13/18 10:44 - Laboratory Laboratory results interpreted by me: 12/13/18 12/13/18 12/13/18 10:59 10:59 13:55 MCV 77 L MCH 25.0 L RDW 15.5 H Chloride 109 H BUN 4 L Creatinine 0.51 L Glucose 131 H Total Protein 6.1 L Urine Urobilinogen CSF WBC 753 H 12/13/18 12/13/18 13:55 15:39 MCV MCH RDW Chloride BUN Creatinine Glucose Total Protein Urine Urobilinogen 2.0 H CSF WBC 358 H Procedures - Lumbar Puncture Lumbar puncture Time completed: 13:38 Consent obtained: Yes Lumbar puncture pre-procedure: Sterile PPE donned, Chloraprep applied Patient position: Sitting Needle size: 14 Lumbar puncture location: L4, L3 Anesthetic type: 1% Lidocaine mL's of anesthetic: 20 Number of attempts: 4 Complications: No <DEVIN RICH - Last Filed: 12/13/18 13:36> - Lumbar Puncture Lumbar puncture Notes: 12/13/18 13:38 Unsuccessful lumbar puncture awaiting anesthesiology (DEVIN RICH) Discharge <DEVIN RICH - Last Filed: 12/13/18 13:36> - Discharge Admitting Provider: Abby (Hospitalist) Unit Admitted: Medical Floor <KISHA SERRATO - Last Filed: 12/13/18 16:56> - Discharge Clinical Impression: Meningitis Condition: Stable Disposition: ADMITTED INPATIENT
[2018-12-13 14:47] LABS: GLUCOSE,CSF 58 mg/dL (40-70); PROTEIN,CSF 50 mg/dL (12-60)
[2018-12-13 15:19] LABS: APPEARANCE ALL TUBES CLEAR; COLOR ALL TUBES COLORLESS; CSF TUBE NUMBER 1; RED BLOOD CELL,CSF 91 /uL (0-10)
[2018-12-13 15:20] LABS: WHITE BLOOD CELL,CSF 753 /uL (0-5)
[2018-12-13 15:22] LABS: APPEARANCE ALL TUBES CLEAR; COLOR ALL TUBES COLORLESS; CSF TUBE NUMBER 4
[2018-12-13 15:23] LABS: RED BLOOD CELL,CSF 7 /uL (0-10); WHITE BLOOD CELL,CSF 358 /uL (0-5)
[2018-12-13 15:38] LABS: MONONUCLEAR CELLS CSF 97 %; POLYMORPHONUCLEAR CELLS CSF 3 %
[2018-12-13 15:40] LABS: MONONUCLEAR CELLS CSF 95 %; POLYMORPHONUCLEAR CELLS CSF 5 %
[2018-12-13] MEDS ORDERED: ACYCLOVIR SODIUM INJ/PF 500 MG/10 ML SDV IV ONE (16:14)
[2018-12-13 16:17] LABS: APPEARANCE,URINE SLIGHTLY-CLOUDY; BILIRUBIN,URINE NEGATIVE (NEGATIVE); COLOR,URINE YELLOW; GLUCOSE, URINE NEGATIVE (NEGATIVE); KETONES,URINE NEGATIVE (NEGATIVE); LEUKOCYTE ESTERASE,URINE NEGATIVE (NEGATIVE); NITRITE,URINE NEGATIVE (NEGATIVE); PROTEIN,URINE NEGATIVE (NEGATIVE); URINE SPECIFIC GRAVITY 1.013
[2018-12-13] MEDS ORDERED: VANCOMYCIN HCL INJ 1000 MG VIAL IV ONE (16:52)
[2018-12-13] MEDS ORDERED: TEMAZEPAM 7.5 MG CAPSULE PO PRN (17:21)
[2018-12-13] MEDS ORDERED: ONDANSETRON HCL INJ/PF 4 MG/2 ML SDV IV PRN (17:21)
[2018-12-13] MEDS ORDERED: ACETAMINOPHEN 650 MG SUPP.RECT PR PRN (17:21)
--- NOTE | 2018-12-13 17:42 | PDOC H&P ---
History of Present Illness Admission Date/PCP: 12/13/18 17:10 Patient complains of: Headache and fever History of Present Illness: YULIA PIZANO is a 23 year old female presents to the emergency room due to acute onset of frontal headache neck and lower back pain started acutely 3 days ago and has been persistent. Associated with high fever up to 102 and mild neck stiffness especially when she tries to move her chin to the chest. Patient came to the emergency room yesterday but declined lumbar puncture and was discharged on doxycycline. Her symptoms persisted and she returned back today. Lumbar puncture was done and was abnormal with high white count low normal glucose high normal protein. Patient is not in the or in school. She does not have any rash. Past Medical History Medical History: None Past Surgical History Past Surgical History: Reports: None Social History Smoking Status: Never Smoker Family History Family History: None Parental Family History Reviewed: Yes Children Family History Reviewed: Yes Sibling(s) Family History Reviewed.: Yes Medication/Allergy Home Medications: Doxycycline Hyclate 100 mg PO BID #14 capsule 12/12/18 Doxycycline Hyclate 100 mg PO BID #28 capsule 12/12/18 Allergies/Adverse Reactions: No Known Allergies Allergy (Verified 12/13/18 10:41) Review of Systems All systems: reviewed and no additional remarkable complaints except as stated Physical Exam Vital Signs: Temp Pulse Resp BP Pulse Ox 98.5 F 115 H 18 146/69 H 99 12/13/18 10:44 12/13/18 10:44 12/13/18 10:44 12/13/18 10:44 12/13/18 10:44 Intake & Output 12/12/18 12/13/18 12/14/18 06:59 06:59 06:59 Intake Total 1050 Balance 1050 Weight 215 lb 13.321 oz Exam: Patient is no acute distress Alert oriented to time place person No anxiety or depression Head: atraumatic normocephalic Pupils: are equal reactive Neck: is supple and trachea is central no lymphadenopathy No pharyngeal erythema or exudates Heart: Regular rate and rhythm Lungs: clear no distress Abdomen: nontender nondistended Neurological exam: unremarkable, no neck rigidity Musculoskeletal: No joint swelling or effusion chronic lower back pain and tenderness No suicidal or homicidal ideation Results Laboratory Results: 12/13/18 10:59 12/13/18 10:59 0512/13/18 12/13/18 10:59 10:59 13:55 WBC 4.1 RBC 5.13 Hgb 12.8 Hct 39.2 MCV 77 L MCH 25.0 L MCHC 32.6 RDW 15.5 H Plt Count 340 Seg Neutrophils % 49.7 Lymphocytes % 39.6 Monocytes % 8.9 Eosinophils % 1.3 Basophils % 0.5 Absolute Neutrophils 2.1 Absolute Lymphocytes 1.6 Absolute Monocytes 0.4 Absolute Eosinophils 0.1 Absolute Basophils 0.0 Sodium 142.4 Potassium 3.6 Chloride 109 H Carbon Dioxide 24 Anion Gap 9 BUN 4 L Creatinine 0.51 L Est GFR ( Amer) > 60 Est GFR (Non-Af Amer) > 60 Glucose 131 H Calcium 9.5 Total Bilirubin 1.0 AST 21 ALT 26 Alkaline Phosphatase 58 Total Protein 6.1 L Albumin 3.8 Urine Color Urine Appearance Urine pH Ur Specific [place] Urine Protein Urine Glucose (UA) Urine Ketones Urine Blood Urine Nitrite Ur Leukocyte Esterase Urine WBC (Auto) Urine RBC (Auto) Fluid Tube Number 1 CSF Volume 4.0 CSF Appearance CLEAR CSF Color COLORLESS CSF WBC 753 H CSF RBC 91 CSF Polymorphonuclear 3 CSF Glucose CSF Total Protein 12/13/18 12/13/18 12/13/18 13:55 13:55 15:39 WBC RBC Hgb Hct MCV MCH MCHC RDW Plt Count Seg Neutrophils % Lymphocytes % Monocytes % Eosinophils % Basophils % Absolute Neutrophils Absolute Lymphocytes Absolute Monocytes Absolute Eosinophils Absolute Basophils Sodium Potassium Chloride Carbon Dioxide Anion Gap BUN Creatinine Est GFR ( Amer) Est GFR (Non-Af Amer) Glucose Calcium Total Bilirubin AST ALT Alkaline Phosphatase Total Protein Albumin Urine Color YELLOW Urine Appearance SLIGHTLY-CLOUDY Urine pH 6.0 Ur Specific [place] 1.013 Urine Protein NEGATIVE Urine Glucose (UA) NEGATIVE Urine Ketones NEGATIVE Urine Blood NEGATIVE Urine Nitrite NEGATIVE Ur Leukocyte Esterase NEGATIVE Urine WBC (Auto) 2 Urine RBC (Auto) 0 Fluid Tube Number 4 CSF Volume 4.0 CSF Appearance CLEAR CSF Color COLORLESS CSF WBC 358 H CSF RBC 7 CSF Polymorphonuclear 5 CSF Glucose 58 CSF Total Protein 50 Assessment and Plan - Diagnosis (1) Meningitis Is this a current diagnosis for this admission?: Yes Plan: Start empiric IV ceftriaxone and IV vancomycin. Consult infectious disease. Follow cultures from CSF. (2) Fever Qualifiers: Fever type: unspecified Qualified Code(s): R50.9 - Fever, unspecified Is this a current diagnosis for this admission?: Yes Plan: Tylenol as needed. (3) Headache Qualifiers: Headache type: unspecified Headache chronicity pattern: acute headache Is this a current diagnosis for this admission?: Yes Plan: Oxycodone as needed.
[2018-12-13] MEDS: OXYCODONE-ACETAMINOPHEN 5-325 MG TABLET PO PRN (18:08)
[2018-12-13] MEDS: RINGERS SOLUTION,LACTATED 1,000 ML IV PRN (20:40)
[2018-12-13] MEDS ORDERED: VANCOMYCIN HCL 2,000 MG in DEXTROSE 5%-WATER 500 ML IV ONE (21:00)
[2018-12-13] MEDS ORDERED: VANCOMYCIN HCL INJ 500 MG VIAL IV SCH (22:00)
[2018-12-13] MEDS ORDERED: CEFTRIAXONE 2 GM/D5W RTU 2 GM/50 ML RTUPB IV SCH (22:00)
[2018-12-13] MEDS: FAMOTIDINE 20 MG TABLET PO SCH (22:42)
[2018-12-14] MEDS ORDERED: DIPHENHYDRAMINE HCL 25 MG CAPSULE ONE (00:16)
[2018-12-14] MEDS ORDERED: DIPHENHYDRAMINE HCL 50 MG CAPSULE PO PRN (00:18)
[2018-12-14] MEDS ORDERED: VANCOMYCIN HCL INJ 500 MG VIAL ONE (00:46)
[2018-12-14] MEDS ORDERED: VANCOMYCIN HCL INJ 1000 MG VIAL ONE (00:46)
[2018-12-14] MEDS ORDERED: VANCOMYCIN HCL INJ 1000 MG VIAL IV PRN (05:00)
[2018-12-14] MEDS: CEFTRIAXONE 2 GM/D5W RTU 2 GM/50 ML RTUPB IV SCH ×2 (05:20→16:31)
[2018-12-14 05:25] LABS: HEMATOCRIT 35.4 % (36.0-47.0); HEMOGLOBIN 11.6 g/dL (12.0-15.5); MEAN CORPUSCULAR HEMOGLOBIN 24.8 pg (27.0-33.4); MEAN CORPUSCULAR HGB CONC 32.9 g/dL (32.0-36.0); MEAN CORPUSCULAR VOLUME 76 fl (80-97); PLATELET COUNT 298 10^3/uL (150-450); RED BLOOD COUNT 4.68 10^6/uL (3.72-5.28); RED CELL DISTRIBUTION WIDTH 15.1 % (11.5-14.0); WHITE BLOOD COUNT 4.6 10^3/uL (4.0-10.5)
[2018-12-14 05:45] LABS: ANION GAP 7 (5-19); BLOOD UREA NITROGEN 4 mg/dL (7-20); CALCIUM 9.3 mg/dL (8.4-10.2); CARBON DIOXIDE 26 mmol/L (22-30); CHLORIDE 108 mmol/L (98-107); GLUCOSE 105 mg/dL (75-110); POTASSIUM 3.9 mmol/L (3.6-5.0)
[2018-12-14] MEDS ORDERED: VANCOMYCIN HCL 1,500 MG in DEXTROSE 5%-WATER 250 ML IV SCH (06:00)
[2018-12-14] MEDS: RINGERS SOLUTION,LACTATED 1,000 ML IV PRN ×2 (06:17→16:31)
[2018-12-14] MEDS: ENOXAPARIN SODIUM INJ 40 MG/0.4 ML DISP.SYRIN SUBCUT SCH (09:48)
[2018-12-14] MEDS: FAMOTIDINE 20 MG TABLET PO SCH ×2 (09:49→21:16)
--- NOTE | 2018-12-14 10:16 | PDOC PROGRESS REPORT ---
Subjective Progress Note for:: 12/14/18 Subjective:: Subjective: YULIA PIZANO is a 23 year old female presents to the emergency room due to acute onset of frontal headache neck and lower back pain started acutely 3 days ago and has been persistent. Associated with high fever up to 102 and mild neck stiffness especially when she tries to move her chin to the chest. Patient came to the emergency room yesterday but declined lumbar puncture and was discharged on doxycycline. Her symptoms persisted and she returned back today. Lumbar puncture was done and was abnormal with high white count low normal glucose high normal protein. Patient is not in the or in school. She does not have any rash. 12/14/2018: Patient is feeling much better. Headache has improved significantly. She has no neck pain. She is afebrile. She has mild lower back pain attributed to lumbar puncture yesterday. Physical Exam Patient is no acute distress Alert oriented to time place person No anxiety or depression Head: atraumatic normocephalic Pupils: are equal reactive Neck: is supple and trachea is central no lymphadenopathy No pharyngeal erythema or exudates Heart: Regular rate and rhythm Lungs: clear no distress Abdomen: nontender nondistended Neurological exam: unremarkable, no neck rigidity Musculoskeletal: No joint swelling or effusion chronic lower back pain and tenderness No suicidal or homicidal ideation Assessment and Plan (1) Meningitis Is this a current diagnosis for this admission?: Yes Plan: 12/13/2018: Start empiric IV ceftriaxone and IV vancomycin. Consult infectious disease. Follow cultures from CSF. 12/14/2018: Continue antibiotics. Follow cultures. (2) Fever Qualifiers: Fever type: unspecified Qualified Code(s): R50.9 - Fever, unspecified Is this a current diagnosis for this admission?: Yes Plan: 12/13/2018: Tylenol as needed. 12/14/2018: She is currently afebrile. (3) Headache Qualifiers: Headache type: unspecified Headache chronicity pattern: acute headache Is this a current diagnosis for this admission?: Yes Plan: 12/13/2018: Oxycodone as needed. 12/14/2018: Headache significantly improved. Reason For Visit: MENINGITIS Physical Exam Vital Signs: Temp Pulse Resp BP Pulse Ox 98.2 F 77 15 126/53 H 100 12/14/18 08:08 12/14/18 08:08 12/14/18 08:08 12/14/18 08:08 12/14/18 08:08 Intake & Output 12/13/18 12/14/18 12/15/18 06:59 06:59 06:59 Intake Total 3773 Balance 3773 Weight 225 lb 15.581 oz Results Laboratory Results: 12/14/18 05:09 12/14/18 05:09 12/13/18 12/13/18 12/13/18 10:59 10:59 13:55 WBC 4.1 RBC 5.13 Hgb 12.8 Hct 39.2 MCV 77 L MCH 25.0 L MCHC 32.6 RDW 15.5 H Plt Count 340 Seg Neutrophils % 49.7 Lymphocytes % 39.6 Monocytes % 8.9 Eosinophils % 1.3 Basophils % 0.5 Absolute Neutrophils 2.1 Absolute Lymphocytes 1.6 Absolute Monocytes 0.4 Absolute Eosinophils 0.1 Absolute Basophils 0.0 Sodium 142.4 Potassium 3.6 Chloride 109 H Carbon Dioxide 24 Anion Gap 9 BUN 4 L Creatinine 0.51 L Est GFR ( Amer) > 60 Est GFR (Non-Af Amer) > 60 Glucose 131 H Calcium 9.5 Total Bilirubin 1.0 AST 21 ALT 26 Alkaline Phosphatase 58 Total Protein 6.1 L Albumin 3.8 Urine Color Urine Appearance Urine pH Ur Specific [place] Urine Protein Urine Glucose (UA) Urine Ketones Urine Blood Urine Nitrite Ur Leukocyte Esterase Urine WBC (Auto) Urine RBC (Auto) Fluid Tube Number 1 CSF Volume 4.0 CSF Appearance CLEAR CSF Color COLORLESS CSF WBC 753 H CSF RBC 91 CSF Polymorphonuclear 3 CSF Glucose CSF Total Protein 12/13/18 12/13/18 12/13/18 13:55 13:55 15:39 WBC RBC Hgb Hct MCV MCH MCHC RDW Plt Count Seg Neutrophils % Lymphocytes % Monocytes % Eosinophils % Basophils % Absolute Neutrophils Absolute Lymphocytes Absolute Monocytes Absolute Eosinophils Absolute Basophils Sodium Potassium Chloride Carbon Dioxide Anion Gap BUN Creatinine Est GFR ( Amer) Est GFR (Non-Af Amer) Glucose Calcium Total Bilirubin AST ALT Alkaline Phosphatase Total Protein Albumin Urine Color YELLOW Urine Appearance SLIGHTLY-CLOUDY Urine pH 6.0 Ur Specific [place] 1.013 Urine Protein NEGATIVE Urine Glucose (UA) NEGATIVE Urine Ketones NEGATIVE Urine Blood NEGATIVE Urine Nitrite NEGATIVE Ur Leukocyte Esterase NEGATIVE Urine WBC (Auto) 2 Urine RBC (Auto) 0 Fluid Tube Number 4 CSF Volume 4.0 CSF Appearance CLEAR CSF Color COLORLESS CSF WBC 358 H CSF RBC 7 CSF Polymorphonuclear 5 CSF Glucose 58 CSF Total Protein 50 12/14/18 12/14/18 05:09 05:09 WBC 4.6 RBC 4.68 Hgb 11.6 L Hct 35.4 L MCV 76 L MCH 24.8 L MCHC 32.9 RDW 15.1 H Plt Count 298 Seg Neutrophils % Lymphocytes % Monocytes % Eosinophils % Basophils % Absolute Neutrophils Absolute Lymphocytes Absolute Monocytes Absolute Eosinophils Absolute Basophils Sodium 141.0 Potassium 3.9 Chloride 108 H Carbon Dioxide 26 Anion Gap 7 BUN 4 L Creatinine 0.56 Est GFR ( Amer) > 60 Est GFR (Non-Af Amer) > 60 Glucose 105 Calcium 9.3 Total Bilirubin AST ALT Alkaline Phosphatase Total Protein Albumin Urine Color Urine Appearance Urine pH Ur Specific [place] Urine Protein Urine Glucose (UA) Urine Ketones Urine Blood Urine Nitrite Ur Leukocyte Esterase Urine WBC (Auto) Urine RBC (Auto) Fluid Tube Number CSF Volume CSF Appearance CSF Color CSF WBC CSF RBC CSF Polymorphonuclear CSF Glucose CSF Total Protein Assessment and Plan - Diagnosis (1) Meningitis Is this a current diagnosis for this admission?: Yes (2) Fever Qualifiers: Fever type: unspecified Qualified Code(s): R50.9 - Fever, unspecified Is this a current diagnosis for this admission?: Yes (3) Headache Qualifiers: Headache type: unspecified Headache chronicity pattern: acute headache Is this a current diagnosis for this admission?: Yes
[2018-12-14] MEDS: VANCOMYCIN HCL 1,250 MG in DEXTROSE 5%-WATER 250 ML IV SCH ×2 (14:37→21:17)
[2018-12-14] MEDS: OXYCODONE-ACETAMINOPHEN 5-325 MG TABLET PO PRN (16:30)
[2018-12-15] MEDS: VANCOMYCIN HCL 1,250 MG in DEXTROSE 5%-WATER 250 ML IV SCH ×3 (05:49→21:52)
[2018-12-15] MEDS: CEFTRIAXONE 2 GM/D5W RTU 2 GM/50 ML RTUPB IV SCH ×2 (05:49→16:11)
[2018-12-15] MEDS ORDERED: ACETAMINOPHEN 325 MG TABLET PO PRN (08:11)
[2018-12-15] MEDS: ENOXAPARIN SODIUM INJ 40 MG/0.4 ML DISP.SYRIN SUBCUT SCH (09:44)
[2018-12-15] MEDS: FAMOTIDINE 20 MG TABLET PO SCH ×2 (09:45→21:52)
--- NOTE | 2018-12-15 13:47 | PDOC PROGRESS REPORT ---
Subjective Progress Note for:: 12/15/18 Subjective:: 23 year old female presents to the emergency room due to acute onset of frontal headache neck and lower back pain started acutely 3 days ago and has been persistent. Associated with high fever up to 102 and mild neck stiffness especially when she tries to move her chin to the chest. Patient came to the emergency room yesterday but declined lumbar puncture and was discharged on doxycycline. Her symptoms persisted and she returned back today. Lumbar puncture was done and was abnormal with high white count low normal glucose high normal protein. Patient is not in the or in school. She does not have any rash. 12/14/2018: Patient is feeling much better. Headache has improved significantly. She has no neck pain. She is afebrile. She has mild lower back pain attributed to lumbar puncture yesterday. 12/15/[id number]-wogh-old female admitted with severe headaches and back pain status post LP was done. Issues CSF fluid shows increased WBC count low normal glucose and high normal protein. So far the cultures are negative patient was started on IV Rocephin and IV vancomycin , On the IV line came off last night patient is refusing to be stuck again refusing to have antibiotics. Patient understand that she need IV antibiotic therapy but after 5 or 6 unsuccessful attempts putting a IV line patient is refusing the attempts for further IV access. And understood the consequences of refusing the antibiotics but she wants to wait until the final report is available. and Mary Jo nurse aviation boatswain's mate tried to convince the patient to have IV access but our attempts are unsuccessful. Reason For Visit: MENINGITIS Physical Exam Vital Signs: Temp Pulse Resp BP Pulse Ox 98.6 F 84 14 139/65 H 100 12/15/18 08:00 12/15/18 08:00 12/15/18 08:00 12/15/18 08:00 12/15/18 08:00 Intake & Output 12/14/18 12/15/18 12/16/18 06:59 06:59 06:59 Intake Total 3773 1150 1000 Balance 3773 1150 1000 Weight 102.5 kg 99.9 kg General appearance: PRESENT: no acute distress, obese Head exam: PRESENT: atraumatic Eye exam: PRESENT: PERRLA Mouth exam: PRESENT: moist, tongue midline Neck exam: ABSENT: carotid bruit, JVD, lymphadenopathy, thyromegaly Respiratory exam: PRESENT: clear to auscultation tai. ABSENT: rales, rhonchi, wheezes Cardiovascular exam: PRESENT: RRR. ABSENT: diastolic murmur, rubs, systolic murmur GI/Abdominal exam: PRESENT: normal bowel sounds, soft. ABSENT: distended, guarding, mass, organolmegaly, rebound, tenderness Rectal exam: PRESENT: deferred Neurological exam: PRESENT: alert, awake, oriented to person, oriented to place, oriented to time, oriented to situation, CN II-XII grossly intact. ABSENT: motor sensory deficit Psychiatric exam: PRESENT: appropriate affect, normal mood. ABSENT: homicidal ideation, suicidal ideation Results Laboratory Results: 12/14/18 05:09 12/14/18 05:09 12/13/18 15:39 Clean Catch Midstream Urine Culture - Final NO GROWTH 2 DAYS Assessment and Plan - Diagnosis (1) Meningitis Is this a current diagnosis for this admission?: Yes Plan: Start empiric IV ceftriaxone and IV vancomycin. Consult infectious disease. Follow cultures from CSF. 12/15/2018-patient was started on empiric IV Rocephin and IV vancomycin patient is refusing the IV antibiotics from last night. Consultation with ID was requested . Cultures urine culture CSF culture are negative so far. (2) Fever Qualifiers: Fever type: unspecified Qualified Code(s): R50.9 - Fever, unspecified Is this a current diagnosis for this admission?: Yes Plan: Tylenol as needed. 12/15/2018-patient came in with fever latest temperature is 98.4. T-max is 99.2. As mentioned above patient refusing IV antibiotic therapy. (3) Headache Qualifiers: Headache type: unspecified Headache chronicity pattern: acute headache Is this a current diagnosis for this admission?: Yes Plan: Oxycodone as needed. 12/15/2018-patient came with complaint severe headaches this morning complaining of minimal headache in the range of 1 to 2 / 10. Plan is to continue oxycodone. (4) Obesity (BMI 30-39.9) Is this a current diagnosis for this admission?: No Plan: 12/15/2018-patient came in with a BMI of more than 35 diet exercise weight loss lifestyle modifications are discussed with the patient. - Time Time Spent with patient: 15-24 minutes Medications reviewed and adjusted accordingly: Yes Anticipated discharge: Home
[2018-12-16 05:04] LABS: ABSOLUTE EOSINOPHILS # (AUTO) 0.2 10^3/uL (0.0-0.6); ABSOLUTE LYMPHOCYTES (AUTO) 2.1 10^3/uL (0.5-4.7); ABSOLUTE MONOCYTES (AUTO) 0.5 10^3/uL (0.1-1.4); ABSOLUTE NEUT (AUTO) 1.8 10^3/uL (1.7-8.2); BASOPHILS % (AUTO) 0.5 % (0-2); EOSINOPHILS % (AUTO) 4.1 % (0-6); HEMATOCRIT 37.2 % (36.0-47.0); HEMOGLOBIN 12.2 g/dL (12.0-15.5); LYMPHOCYTES % (AUTO) 45.7 % (13-45); MEAN CORPUSCULAR HEMOGLOBIN 24.9 pg (27.0-33.4); MEAN CORPUSCULAR HGB CONC 32.8 g/dL (32.0-36.0); MEAN CORPUSCULAR VOLUME 76 fl (80-97); MONOCYTES % (AUTO) 10.7 % (3-13); PLATELET COUNT 296 10^3/uL (150-450); RED CELL DISTRIBUTION WIDTH 15.6 % (11.5-14.0); TOTAL CELLS COUNTED % (AUTO) 100 %; WHITE BLOOD COUNT 4.6 10^3/uL (4.0-10.5)
[2018-12-16 05:26] LABS: ALANINE AMINOTRANSFERASE 28 U/L (9-52); ALBUMIN 3.5 g/dL (3.5-5.0); ALKALINE PHOSPHATASE 63 U/L (38-126); ANION GAP 8 (5-19); ASPARTATE AMINO TRANSFERASE 19 U/L (14-36); BILIRUBIN,DIRECT 0.1 mg/dL (0.0-0.4); BILIRUBIN,TOTAL 0.5 mg/dL (0.2-1.3); BLOOD UREA NITROGEN 7 mg/dL (7-20); CALCIUM 9.6 mg/dL (8.4-10.2); CARBON DIOXIDE 26 mmol/L (22-30); CHLORIDE 107 mmol/L (98-107); GLUCOSE 102 mg/dL (75-110); POTASSIUM 4.4 mmol/L (3.6-5.0); SODIUM 141.3 mmol/L (137-145); TOTAL PROTEIN 6.1 g/dL (6.3-8.2)
[2018-12-16] MEDS: CEFTRIAXONE 2 GM/D5W RTU 2 GM/50 ML RTUPB IV SCH (05:44)
[2018-12-16] MEDS: VANCOMYCIN HCL 1,250 MG in DEXTROSE 5%-WATER 250 ML IV SCH (05:44)
[2018-12-16] MEDS: ENOXAPARIN SODIUM INJ 40 MG/0.4 ML DISP.SYRIN SUBCUT SCH (09:04)
[2018-12-16] MEDS: FAMOTIDINE 20 MG TABLET PO SCH (09:04)
[2018-12-16 10:05] VITALS: BP 143/61
[2018-12-16 11:37] LABS: HSV I DNA Negative (Negative); HSV II DNA Positive (Negative)
--- NOTE | 2018-12-16 12:45 | PDOC DISCHARGE SUMMARY ---
General - Admit/Disc Date/PCP Admission Date/Primary Care Provider: 12/13/18 17:10 Discharge Date: 12/16/18 - Discharge Diagnosis (1) Meningitis Is this a current diagnosis for this admission?: Yes Summary: Start empiric IV ceftriaxone and IV vancomycin. Consult infectious disease. Follow cultures from CSF. 12/15/2018-patient was started on empiric IV Rocephin and IV vancomycin patient is refusing the IV antibiotics from last night. Consultation with ID was requested . Cultures urine culture CSF culture are negative so far. 12/16/2018-patient came in with severe headaches and back pain and lumbar puncture was done started on IV vancomycin and IV Rocephin LP fluid shows increased WBC the impression at the time of admission his white/aseptic meningitis CSF cultures and blood cultures came back negative. Since yesterday patient refused IV antibiotic therapy because we lost the IV line patient refused to be stick to multiple times. This morning denies any complaints denies any headaches denies any dizzy spells denies any back pain physical examination there is no right neck rigidity and no signs of any meningeal symptoms. Patient says she has doxycycline at home she prefers to continue that medication. I strongly advised her to follow-up with primary care physician in 3 to 5 days. (2) Fever Is this a current diagnosis for this admission?: Yes Summary: Tylenol as needed. 12/15/2018-patient came in with fever latest temperature is 98.4. T-max is 99.2. As mentioned above patient refusing IV antibiotic therapy. 12/16/2018-patient is afebrile for the last 48 hours. Temperature is 98.1. No signs and symptoms of meningitis noticed today. Patient is going home today. (3) Headache Is this a current diagnosis for this admission?: Yes Summary: Oxycodone as needed. 12/15/2018-patient came with complaint severe headaches this morning complaining of minimal headache in the range of 1 to 2 / 10. Plan is to continue oxycodone. 12/16/[id number]-aife-old female came in with severe headaches and back pains. High suspicion for meningitis LP was done the cultures came back negative. Headache was resolved. Patient is asymptomatic for the last 48 hours. Patient is going home today. (4) Obesity (BMI 30-39.9) Is this a current diagnosis for this admission?: No Summary: 12/15/2018-patient came in with a BMI of more than 35 diet exercise weight loss lifestyle modifications are discussed with the patient. - Additional Information Resuscitation Status: Full Code Discharge Diet: Cardiac Discharge Activity: Activity As Tolerated Home Medications: No Home Medications 12/14/18 History of Present Illness History of Present Illness: YULIA PIZANO is a 23 year old female 23 year old female presents to the emergency room due to acute onset of frontal headache neck and lower back pain started acutely 3 days ago and has been persistent. Associated with high fever up to 102 and mild neck stiffness especially when she tries to move her chin to the chest. Patient came to the emergency room yesterday but declined lumbar puncture and was discharged on doxycycline. Her symptoms persisted and she returned back today. Lumbar puncture was done and was abnormal with high white count low normal glucose high normal protein. Patient is not in the or in school. She does not have any rash. Hospital Course Hospital Course: 12/[id number]-vule-old female admitted on 12/13/2018 with complaints of severe headaches and back pain started on IV antibiotic therapy IV Rocephin and IV vancomycin after lumbar puncture was done no complications during the hospital course. Patient refused IV antibiotic therapy from yesterday because she does n ot want to be stick to many times for IV access. Fortunately cultures came back negative. Patient is asymptomatic. She is going home today. Physical Exam Vital Signs: Temp Pulse Resp BP Pulse Ox 98.1 F 70 17 143/61 H 100 12/16/18 10:04 12/16/18 10:04 12/16/18 10:04 12/16/18 10:04 12/16/18 10:04 Intake & Output 12/15/18 12/16/18 12/17/18 06:59 06:59 06:59 Intake Total 1150 2880 Balance 1150 2880 Weight 99.9 kg 101.9 kg General appearance: PRESENT: no acute distress, obese Head exam: PRESENT: atraumatic Eye exam: PRESENT: PERRLA Mouth exam: PRESENT: moist, tongue midline Teeth exam: PRESENT: poor dentation Neck exam: ABSENT: carotid bruit, JVD, lymphadenopathy, thyromegaly Respiratory exam: PRESENT: clear to auscultation tai. ABSENT: rales, rhonchi, wheezes Cardiovascular exam: PRESENT: RRR. ABSENT: diastolic murmur, rubs, systolic murmur GI/Abdominal exam: PRESENT: normal bowel sounds, soft. ABSENT: distended, guarding, mass, organolmegaly, rebound, tenderness Rectal exam: PRESENT: deferred Neurological exam: PRESENT: alert, awake, oriented to person, oriented to place, oriented to time, oriented to situation, CN II-XII grossly intact. ABSENT: motor sensory deficit Psychiatric exam: PRESENT: appropriate affect, normal mood. ABSENT: homicidal ideation, suicidal ideation Results Laboratory Results: 12/16/18 04:28 12/16/18 04:28 12/16/18 12/16/18 04:28 04:28 WBC 4.6 RBC 4.90 Hgb 12.2 Hct 37.2 MCV 76 L MCH 24.9 L MCHC 32.8 RDW 15.6 H Plt Count 296 Seg Neutrophils % 39.0 L Lymphocytes % 45.7 H Monocytes % 10.7 Eosinophils % 4.1 Basophils % 0.5 Absolute Neutrophils 1.8 Absolute Lymphocytes 2.1 Absolute Monocytes 0.5 Absolute Eosinophils 0.2 Absolute Basophils 0.0 Sodium 141.3 Potassium 4.4 Chloride 107 Carbon Dioxide 26 Anion Gap 8 BUN 7 Creatinine 0.57 Est GFR ( Amer) > 60 Est GFR (Non-Af Amer) > 60 Glucose 102 Calcium 9.6 Magnesium 1.7 Total Bilirubin 0.5 AST 19 ALT 28 Alkaline Phosphatase 63 Total Protein 6.1 L Albumin 3.5 12/13/18 13:55 Cerebral Spinal Fluid - Tube 3 (Csf) Gram Stain - Final 12/13/18 13:55 Cerebral Spinal Fluid - Tube 3 (Csf) CSF Culture - Final NO GROWTH 3 DAYS 12/13/18 15:39 Clean Catch Midstream Urine Culture - Final NO GROWTH 2 DAYS Qualifiers - * PATIENT BEING DISCHARGED WITH ANY OF THE FOLLOWING DIAGNOSIS: No VTE patient discharged on overlapping Therapy?: No Acute Heart Failure Is this a Heart Failure Patient?: No Plan Discharge Plan: Patient is discharged home today. Time Spent: Less than 30 Minutes
== END 2018-12-16 10:27 | disposition home or self-care (01) | DRG 99 ==
LOC: ER 10:40 → EH 17:10 → 4N 18:57
PROVIDERS: ADMIT Family Medicine; ATTEND Family Medicine
PROC: 009U3ZX Drainage of Spinal Canal, Percutaneous Approach, Diagnostic (ICD-10-PCS; principal; 2018-12-13)
DX: G03.9 Meningitis, unspecified (principal); E66.9 Obesity, unspecified; Z68.35 Body mass index [BMI] 35.0-35.9, adult; Z79.899 Other long term (current) drug therapy
CPT/HCPCS: 36415; 80048; 80053; 81001; 82945; 83735; 84157; 85025; 85027; 87040; 87070; 87086; 87205; 87529; 89050; 96361; 96365; 96375; 99284; J0133; J0696; J2060; J3010; J3370; J3490; J7060; J7120

== ENCOUNTER 2019-08-18 16:15 | Emergency (ER) | payer MEDICAID ==
[2019-08-18] MEDS ORDERED: DEXAMETHASONE SOD PHOS INJ 10 MG/1 ML VIAL IV ONE (17:02)
[2019-08-18] MEDS ORDERED: KETOROLAC TROMETHAMINE INJ/PF 30 MG/1 ML SDV IV ONE (17:02)
[2019-08-18] MEDS ORDERED: NORMAL SALINE 1000 ML 1,000 ML IV ONE (17:02)
--- NOTE | 2019-08-18 17:03 | ER Document Report ---
ED ENT - General Chief Complaint: Sore Throat Stated Complaint: SORE THROAT Time Seen by Provider: 08/18/19 16:55 Primary Care Provider: BALAJI OLSON MD [ACTIVE STAFF] - Follow up as needed Mode of Arrival: Ambulatory Information source: Patient Notes: 24-year-old female presented to ED for sore throat. She states that her throat is very sore and is making her left ear hurt. She states a couple weeks ago her right side of her throat was painful and causing her left right ear to hurt now the left side is. Both tonsils are equally swollen with exudate. She denies any fevers. She states she is having some congestion and some mucus. She does have swollen nasal turbinates as well. TRAVEL OUTSIDE OF THE [place] IN LAST 30 DAYS: No - HPI Patient complains to provider of: Throat problem Onset: Other Onset/Duration: Gradual - 2 weeks, Intermittent Severity: Moderate Pain Level: 3 Context: Recent Illness Location of pain: Ears, Sinus, Throat Associated symptoms: Ear pain, Runny nose, Sinus pain, Sinus drainage, Sore throat. denies: Ear drainage, Ear trauma Similar symptoms previously: Yes Recently seen / treated by doctor: No - Related Data Allergies/Adverse Reactions: No Known Allergies Allergy (Verified 12/13/18 10:41) Past Medical History - General Information source: Patient - Social History Smoking Status: Never Smoker Frequency of alcohol use: None Lives with: Family Family History: None, Reviewed & Not Pertinent Patient has suicidal ideation: No Patient has homicidal ideation: No - Past Medical History Cardiac Medical History: Reports: None Pulmonary Medical History: Reports: None EENT Medical History: Reports: None Neurological Medical History: Reports: None Endocrine Medical History: Reports: None Renal/ Medical History: Reports: None Malignancy Medical History: Reports: None GI Medical History: Reports: None Musculoskeletal Medical History: Reports None Skin Medical History: Reports None Psychiatric Medical History: Reports: None Traumatic Medical History: Reports: None Infectious Medical History: Reports: None - Immunizations Immunizations up to date: Yes Hx Diphtheria, Pertussis, Tetanus Vaccination: Yes Review of Systems - Review of Systems Constitutional: Chills, Recent illness EENT: No symptoms reported, Ear pain, Nose pain, Nose congestion, Nose dischar ge, Sinus pressure, Throat pain Cardiovascular: No symptoms reported Respiratory: No symptoms reported, Cough Gastrointestinal: No symptoms reported Genitourinary: No symptoms reported Female Genitourinary: No symptoms reported Musculoskeletal: No symptoms reported Skin: No symptoms reported Hematologic/Lymphatic: No symptoms reported Neurological/Psychological: No symptoms reported -: Yes All other systems reviewed and negative Physical Exam - Vital signs Vitals: Temp Pulse Resp BP Pulse Ox 100.2 F 119 H 18 150/87 H 99 08/18/19 16:19 08/18/19 16:19 08/18/19 16:19 08/18/19 16:19 08/18/19 16:19 Interpretation: Normal - General General appearance: Appears well, Alert - HEENT Head: Normocephalic, Atraumatic Eyes: Normal Pupils: PERRL Ears: Normal External canal: Normal Tympanic membrane: Normal Sinus: Normal Nasal: Swelling, Clear rhinorrhea Mouth/Lips: Normal Mucous membranes: Normal Pharynx: Normal Neck: Normal - Respiratory Respiratory status: No respiratory distress Chest status: Nontender Breath sounds: Normal Chest palpation: Normal - Cardiovascular Rhythm: Regular Heart sounds: Normal auscultation Murmur: No - Abdominal Inspection: Normal Distension: No distension Bowel sounds: Normal Tenderness: Nontender Organomegaly: No organomegaly - Back Back: Normal, Nontender - Extremities General upper extremity: Normal inspection, Nontender, Normal color, Normal ROM, Normal temperature General lower extremity: Normal inspection, Nontender, Normal color, Normal ROM, Normal temperature, Normal weight bearing. No: Tino's sign - Neurological Neuro grossly intact: Yes Cognition: Normal Orientation: AAOx4 Tamika Coma Scale Eye Opening: Spontaneous Tamika Coma Scale Verbal: Oriented Onward Coma Scale Motor: Obeys Commands Tamika Coma Scale Total: 15 Speech: Normal Motor strength normal: LUE, RUE, LLE, RLE Sensory: Normal - Psychological Associated symptoms: Normal affect, Normal mood - Skin Skin Temperature: Warm Skin Moisture: Dry Skin Color: Normal Course - Vital Signs Vital signs: Temp Pulse Resp BP Pulse Ox 99.1 F 99 18 146/73 H 100 08/18/19 17:53 08/18/19 17:53 08/18/19 17:53 08/18/19 17:53 08/18/19 17:53 Discharge - Discharge Clinical Impression: Acute viral tonsillitis, Otalgia of both ears Condition: Stable Disposition: HOME, SELF-CARE Additional Instructions: Tonsillitis Tonsillitis is infection of the tonsils. Symptoms include sore throat, difficulty swallowing, fever and aches, and tender lumps under the angle of the jaw. Tonsillitis can be caused by bacteria or viruses. Viral tonsillitis must get better on its own. Antibiotics don't help. The doctor may test for mononucleosis if symptoms last many days. We can only treat the symptoms. Bacterial tonsillitis is treated with antibiotics. It may take a few days before improvement occurs. It's important to take all the antibiotics. Take acetaminophen or ibuprofen for pain and fever. Sip frequent clear liquids, or use popsicles or ice chips. Anesthetic sprays or lozenges may help a little (the pain of tonsillitis is deep, and isn't helped much by numbing the surface). Make sure the air in the room is not too dry. Avoid using decongestants or antihistamines. Tonsillectomy may be necessary if you have several episodes of tonsillitis within a couple of years, or if there are complications from your tonsillitis. It's usually not needed. Call the doctor if there is no improvement in two days, or if you have difficulty breathing, increasing throat pain, high fever, rash, or frequent vomiting. Toradol Injection You have been given an injection of ketorolac tromethamine (Toradol). This is an excellent, safe drug for pain control. It also has potent antiinflammatory action. You should have significant pain relief within about one hour. Toradol is not addicting and is non-sedating. It does not interfere with driving or work. Call or return if you develop itching, hives, shortness of breath, or rash. STEROID MEDICATION: You have been given an injection of medicine of the cortisone/steroid class. This medication is used to control inflammation or allergy. It is often continued as a pill for a short period of time, until the acute process subsides. There are usually no side effects from short-term use of cortisone-like medications. Some persons feel an increased sense of well-being and are not sleepy at bedtime. Long-term use of cortisone medications is best avoided, unless required for a severe condition. If your condition does not remit, or relapses after the course of corticosteroid medication, you should consult your physician. Ibuprofen Ibuprofen is an excellent, safe drug for pain control. In addition, it has potent antiinflammatory effects which are beneficial, especially in the tr eatment of injuries, arthritis, or tendonitis. It's best to take ibuprofen with food. Persons with ulcer disease or allergy to aspirin should notify their physician of this before taking ibuprofen. Take the medication exactly as prescribed. Don't take additional doses unless instructed to do so by your doctor. If you develop wheezing, shortness of breath, hives, faintness, stomach pain, vomiting, or dark black stools, return for re-evaluation at once. You could also use Flonase which is [id number] 1 spray each nostril twice a day. You could also use salt soda solution gargles. These will help to remove the drainage from the back your throat. Chloraseptic spray was [id number] that will also help with your sore throat. Salt and soda solution gargle 1 quart of water 1 tablespoon of salt 1 teaspoon of baking soda Mixed 3 ingredients together and boil for 1 minute Placed in a covered quart jar Use 1/2 ounce of cold solution to gargle 3 times a day FOLLOW-UP CARE: If you have been referred to a physician for follow-up care, call the physicians office for an appointment as you were instructed or within the next two days. If you experience worsening or a significant change in your symptoms, notify the physician immediately or return to the Emergency Department at any time for re-evaluation. Forms: Elevated Blood Pressure Referrals: BALAJI OLSON MD [ACTIVE STAFF] - Follow up as needed
[2019-08-18 17:59] VITALS: BP 146/73
== END 2019-08-18 17:50 | disposition home or self-care (01) ==
LOC: ER 16:15
DX: J03.90 Acute tonsillitis, unspecified (principal); B97.89 Other viral agents as the cause of diseases classified elsewhere; H92.03 Otalgia, bilateral; R09.81 Nasal congestion; R09.89 Other specified symptoms and signs involving the circulatory and respiratory systems; R51 Headache
CPT/HCPCS: 87070; 87880; J1885; J7030; J1100; 96374; 96375; 99283

== ENCOUNTER 2019-08-26 14:06 | Emergency (ER) | payer MEDICAID ==
--- NOTE | 2019-08-26 14:43 | ER Document Report ---
ED Medical Screen (RME) - General Chief Complaint: Chest Pain Stated Complaint: CHEST PAIN/TIGHTENING Time Seen by Provider: 08/26/19 14:40 Mode of Arrival: Ambulatory Information source: Patient Notes: 24-year-old female presents to ED for complaint of chest pain and palpitations with elevated blood pressure. She states that she has had the chest pain palpitation and elevated blood pressure for more than a month but has not come to get that evaluated as yet. Patient is alert oriented respirations regular nonlabored speaking in full sentences. Denies any alcohol tobacco or drug use. States the only medical history she has is high blood pressure. [facility] due to the repeated visits with elevated pulse and blood pressure. I have greeted and performed a rapid initial assessment of this patient. A comprehensive ED assessment and evaluation of the patient, analysis of test results and completion of medical decision making process will be conducted by an additional ED providers. TRAVEL OUTSIDE OF THE [place] IN LAST 30 DAYS: No - Related Data Allergies/Adverse Reactions: No Known Allergies Allergy (Verified 08/26/19 14:44) Past Medical History - Immunizations Immunizations up to date: Yes Hx Diphtheria, Pertussis, Tetanus Vaccination: Yes Physical Exam - Vital signs Vitals: Temp Pulse Resp BP Pulse Ox 98.3 F 108 H 18 170/82 H 100 08/26/19 14:08/26/19 14:08/26/19 14:08/26/19 14:08/26/19 14:26 Course - Vital Signs Vital signs: Temp Pulse Resp BP Pulse Ox 98.3 F 108 H 18 170/82 H 100 08/26/19 14:08/26/19 14:08/26/19 14:08/26/19 14:08/26/19 14:26
[2019-08-26] MEDS ORDERED: ASPIRIN 81 MG TABLET, CHEWABLE PO ONE (14:47)
[2019-08-26 15:56] LABS: ABSOLUTE EOSINOPHILS # (AUTO) 0.1 10^3/uL (0.0-0.6); ABSOLUTE LYMPHOCYTES (AUTO) 1.5 10^3/uL (0.5-4.7); ABSOLUTE MONOCYTES (AUTO) 0.7 10^3/uL (0.1-1.4); ABSOLUTE NEUT (AUTO) 3.9 10^3/uL (1.7-8.2); BASOPHILS % (AUTO) 0.4 % (0-2); EOSINOPHILS % (AUTO) 1.1 % (0-6); HEMATOCRIT 40.9 % (36.0-47.0); HEMOGLOBIN 13.7 g/dL (12.0-15.5); LYMPHOCYTES % (AUTO) 23.5 % (13-45); MEAN CORPUSCULAR HEMOGLOBIN 25.3 pg (27.0-33.4); MEAN CORPUSCULAR HGB CONC 33.5 g/dL (32.0-36.0); MEAN CORPUSCULAR VOLUME 76 fl (80-97); MONOCYTES % (AUTO) 11.7 % (3-13); PLATELET COUNT 331 10^3/uL (150-450); RED BLOOD COUNT 5.41 10^6/uL (3.72-5.28); RED CELL DISTRIBUTION WIDTH 13.8 % (11.5-14.0); SEGMENTED NEUTROPHILS % (AUTO) 63.3 % (42-78); TOTAL CELLS COUNTED % (AUTO) 100 %; WHITE BLOOD COUNT 6.2 10^3/uL (4.0-10.5)
[2019-08-26 16:01] LABS: APPEARANCE,URINE SLIGHTLY-CLOUDY; BILIRUBIN,URINE MODERATE (NEGATIVE); CALCIUM OXALATE CRYSTALS,URINE FEW /HPF; COLOR,URINE AMBER; GLUCOSE, URINE NEGATIVE (NEGATIVE); KETONES,URINE NEGATIVE (NEGATIVE); PROTEIN,URINE NEGATIVE (NEGATIVE); URINE SPECIFIC GRAVITY 1.021
--- NOTE | 2019-08-26 16:13 | RADIOLOGY REPORT (SQ) ---
EXAM DESCRIPTION: CHEST 2 VIEWS COMPLETED DATE/TIME: 08/26/2019 4:05 pm REASON FOR STUDY: chest pain COMPARISON: 12/12/2018. EXAM PARAMETERS: NUMBER OF VIEWS: two views TECHNIQUE: Digital Frontal and Lateral radiographic views of the chest acquired. RADIATION DOSE: NA LIMITATIONS: none FINDINGS: LUNGS AND PLEURA: No opacities, masses or pneumothorax. No pleural effusion. MEDIASTINUM AND HILAR STRUCTURES: No masses or contour abnormalities. HEART AND VASCULAR STRUCTURES: Heart normal size. No evidence for failure. BONES: No acute findings. HARDWARE: None in the chest. OTHER: No other significant finding. IMPRESSION: NO ACUTE RADIOGRAPHIC FINDING IN THE CHEST. TECHNICAL DOCUMENTATION: JOB ID: [id number] [employer]- All Rights Reserved Reading location - IP/workstation name: [email or web address]
[2019-08-26 16:18] LABS: ALBUMIN 4.3 g/dL (3.5-5.0); ALKALINE PHOSPHATASE 137 U/L (38-126); ANION GAP 12 (5-19); ASPARTATE AMINO TRANSFERASE 198 U/L (14-36); BILIRUBIN,DIRECT 1.2 mg/dL (0.0-0.4); BILIRUBIN,TOTAL 2.8 mg/dL (0.2-1.3); BLOOD UREA NITROGEN 11 mg/dL (7-20); CALCIUM 10.1 mg/dL (8.4-10.2); CARBON DIOXIDE 30 mmol/L (22-30); CHLORIDE 96 mmol/L (98-107); GLUCOSE 104 mg/dL (75-110); POTASSIUM 4.3 mmol/L (3.6-5.0); TOTAL PROTEIN 7.9 g/dL (6.3-8.2)
[2019-08-26] MEDS ORDERED: ASPIRIN 81 MG TABLET, CHEWABLE ONE (17:14)
[2019-08-26] MEDS ORDERED: NORMAL SALINE 1000 ML 1,000 ML IV ONE (17:35)
[2019-08-26 17:38] LABS: URINE AMPHETAMINES SCREEN NEGATIVE; URINE BARBITURATES SCREEN NEGATIVE; URINE BENZODIAZEPINES SCREEN NEGATIVE; URINE COCAINE SCREEN NEGATIVE; URINE METHADONE SCREEN NEGATIVE; URINE PHENCYCLIDINE SCREEN NEGATIVE
[2019-08-26 17:40] LABS: URINE MARIJUANA (THC) SCREEN UNCONFIRMED POSITIVE
--- NOTE | 2019-08-26 18:21 | ER Document Report ---
ED General <CAITLYN ARDON - Last Filed: 08/27/19 23:47> - General Mode of Arrival: Ambulatory Information source: Patient TRAVEL OUTSIDE OF THE [place] IN LAST 30 DAYS: No - HPI Onset: Other - 1 month Onset/Duration: Waxing and waning Quality of pain: No pain Pain Level: Denies Associated symptoms: Chest pain - Often on, presently resolved. denies: Chills, Nonproductive cough, Productive cough, Fever, Headache, Hurts to breath, Leg swelling, Nausea, Vomiting, Shortness of breath Exacerbated by: Denies Relieved by: Denies Similar symptoms previously: Yes Recently seen / treated by doctor: No <MAZIN STARK - Last Filed: 08/28/19 15:35> - General Chief Complaint: Chest Pain Stated Complaint: CHEST PAIN/TIGHTENING Time Seen by Provider: 08/26/19 17:30 Notes: Patient presents reporting chest pain off and on for the past month with rapid heart rate. Patient states she was [facility] today and her pulse was elevated which prompted her visit here. Patient presently denies any chest discomfort. Patient denies any fever, nausea vomiting, cough, or abdominal tenderness. Patient states she does have a history of hypertension for which she was supposed to take blood pressure medication but did not like the way the medication made her feel so she stopped taking it. (MAZIN STARK) - Related Data Allergies/Adverse Reactions: No Known Allergies Allergy (Verified 08/26/19 14:44) Past Medical History - General Information source: Patient - Social History Smoking Status: Never Smoker Frequency of alcohol use: None Drug Abuse: None Occupation: None Lives with: Family Family History: None, Reviewed & Not Pertinent Patient has suicidal ideation: No Patient has homicidal ideation: No - Past Medical History Cardiac Medical History: Reports: Hx Hypertension Surgical Hx: Negative - Immunizations Immunizations up to date: Yes Hx Diphtheria, Pertussis, Tetanus Vaccination: Yes <MAZIN STARK - Last Filed: 08/28/19 15:35> Review of Systems - Review of Systems Constitutional: No symptoms reported. denies: Fever, Recent illness EENT: No symptoms reported Cardiovascular: Chest pain, Heart racing Respiratory: No symptoms reported. denies: Cough, Short of breath Gastrointestinal: No symptoms reported. denies: Abdominal pain, Diarrhea, Nausea, Vomiting Genitourinary: No symptoms reported Female Genitourinary: No symptoms reported Musculoskeletal: No symptoms reported. denies: Back pain, Leg swelling Skin: No symptoms reported Hematologic/Lymphatic: No symptoms reported Neurological/Psychological: No symptoms reported. denies: Headaches <MAZIN STARK - Last Filed: 08/28/19 15:35> Physical Exam - General General appearance: Appears well, Alert In distress: None - HEENT Head: Normocephalic, Atraumatic Eyes: Normal Conjunctiva: Normal Nasal: Normal Mouth/Lips: Normal Mucous membranes: Normal Neck: Normal, Supple. No: Lymphadenopathy - Respiratory Respiratory status: No respiratory distress Chest status: Nontender Breath sounds: Normal. No: Rales, Rhonchi, Stridor, Wheezing Chest palpation: Normal - Cardiovascular Rhythm: Tachycardia Heart sounds: S1 appreciated, S2 appreciated Murmur: No - Abdominal Inspection: Morbidly Obese Distension: No distension Bowel sounds: Normal Tenderness: Nontender Organomegaly: No organomegaly - Back Back: Normal, Nontender. No: CVA tenderness - Extremities General upper extremity: Normal inspection, Nontender, Normal strength General lower extremity: Normal inspection, Nontender, Normal strength - Neurological Neuro grossly intact: Yes Cognition: Normal [place] Coma Scale Eye Opening: Spontaneous Tamika Coma Scale Verbal: Oriented Tamika Coma Scale Motor: Obeys Commands [place] Coma Scale Total: 15 - Psychological Associated symptoms: Normal affect, Normal mood - Skin Skin Temperature: Warm Skin Moisture: Dry Skin Color: Normal <MAZIN STARK - Last Filed: 08/28/19 15:35> - Vital signs Vitals: Temp Pulse Resp BP Pulse Ox 98.3 F 108 H 18 170/82 H 100 08/26/19 14:13 08/26/19 14:13 08/26/19 14:13 08/26/19 14:13 08/26/19 14:13 Course - Laboratory Result Diagrams: 08/26/19 15:30 08/26/19 15:30 <CAITLYN ARDON - Last Filed: 08/27/19 23:47> - Laboratory Result Diagrams: 08/26/19 15:30 08/26/19 15:30 - Diagnostic Test Radiology reviewed: Reports reviewed <MAZIN STARK - Last Filed: 08/28/19 15:35> - Re-evaluation Re-evalutation: 08/27/19 23:47 Transport team is almost here. Patient was reevaluated bedside. She was sleeping, easily aroused, not tachycardic, has no current complaints, no sign ificant change from prior. Stable for transport. (CAITLYN ARDON) 08/26/19 22:[address] Santos regarding patient's elevated T3-T4, no additional tests or medications advised at this time. Recommends outpatient follow-up with a primary doctor or surgeon for further evaluation. Discussed patient's ultrasound report findings. Agrees with plan for consultation with surgery. Consulted with Dr. Smith who advises transfer of the patient at this time as we do not have GI services on for ERCP capability. 08/26/19 22:36 Call placed to [facility] transfer sweet. 08/26/19 22:44 GI who is on-call at [facility] does not perform ERCP and recommends transferring patient to a different facility. Call then placed to [facility] transfer sweet. 08/26/19 23:[address] Fiore at [facility] who agrees to accept patient for transfer at this time. Does recommend adding on BNP and giving patient atenolol 25 mg to help with rate control. 08/27/19 00:52 Report and handoff given to RAYNA Manzanares. (MAZIN STARK) - Vital Signs Vital signs: Temp Pulse Resp BP Pulse Ox 98.4 F 108 H 24 H 141/60 H 82 L 08/27/19 23:01 08/26/19 14:26 08/27/19 23:01 08/27/19 23:01 08/27/19 22:03 - Laboratory Laboratory results interpreted by me: 08/26/19 08/26/19 08/26/19 15:30 15:30 15:30 RBC 5.41 H MCV 76 L MCH 25.3 L Chloride 96 L Creatinine 0.44 L Total Bilirubin 2.8 H Direct Bilirubin 1.2 H AST 198 H Alkaline Phosphatase 137 H TSH Free T4 6.84 H Free T3 pg/mL 22.50 H Urine Bilirubin Urine Urobilinogen Leukocyte Esterase Rfl 08/26/19 08/26/19 15:36 18:42 RBC MCV MCH Chloride Creatinine Total Bilirubin Direct Bilirubin AST Alkaline Phosphatase TSH < 0.01 L Free T4 Free T3 pg/mL Urine Bilirubin MODERATE H Urine Urobilinogen 4.0 H Leukocyte Esterase Rfl MODERATE H 08/26/19 23:34 Labs- Entire Visit 08/26/19 08/26/19 08/26/19 15:30 15:30 15:30 WBC 6.2 RBC 5.41 H Hgb 13.7 Hct 40.9 MCV 76 L MCH 25.3 L MCHC 33.5 RDW 13.8 Plt Count 331 Lymph % (Auto) 23.5 Josephine % (Auto) 11.7 Eos % (Auto) 1.1 Baso % (Auto) 0.4 Absolute Neuts (auto) 3.9 Absolute Lymphs (auto) 1.5 Absolute Monos (auto) 0.7 Absolute Eos (auto) 0.1 Absolute Basos (auto) 0.0 Seg Neutrophils % 63.3 D-Dimer Sodium 137.6 Potassium 4.3 Chloride 96 L Carbon Dioxide 30 Anion Gap 12 BUN 11 Creatinine 0.44 L Est GFR ( Amer) > 60 Est GFR (MDRD) Non-Af > 60 Glucose 104 Calcium 10.1 Total Bilirubin 2.8 H Direct Bilirubin 1.2 H Neonat Total Bilirubin Not Reportable Neonat Direct Bilirubin Not Reportable Neonat Indirect Bili Not Reportable AST 198 H ALT 287 Alkaline Phosphatase 137 H Troponin I < 0.012 Total Protein 7.9 Albumin 4.3 Lipase TSH Free T4 Free T3 pg/mL Serum HCG, Qual Urine Color Urine Appearance Urine pH Ur Specific [place] Urine Protein Urine Glucose (UA) Urine Ketones Urine Blood Urine Nitrite (Reflex) Urine Bilirubin Urine Urobilinogen Leukocyte Esterase Rfl Urine RBC (Auto) Urine WBC (Reflex) Squamous Epi Cells Auto Calcium Oxalate Cr Auto Urine Mucus (Auto) Urine Ascorbic Acid Urine Opiates Screen Urine Methadone Screen Ur Barbiturates Screen Ur Phencyclidine Scrn Ur Amphetamines Screen U Benzodiazepines Scrn Urine Cocaine Screen U Marijuana (THC) Screen 08/26/19 08/26/19 08/26/19 15:30 15:30 15:30 WBC RBC Hgb Hct MCV MCH MCHC RDW Plt Count Lymph % (Auto) Josephine % (Auto) Eos % (Auto) Baso % (Auto) Absolute Neuts (auto) Absolute Lymphs (auto) Absolute Monos (auto) Absolute Eos (auto) Absolute Basos (auto) Seg Neutrophils % D-Dimer Sodium Potassium Chloride Carbon Dioxide Anion Gap BUN Creatinine Est GFR ( Amer) Est GFR (MDRD) Non-Af Glucose Calcium Total Bilirubin Direct Bilirubin Neonat Total Bilirubin Neonat Direct Bilirubin Neonat Indirect Bili AST ALT Alkaline Phosphatase Troponin I Total Protein Albumin Lipase 113.9 TSH Free T4 6.84 H Free T3 pg/mL 22.50 H Serum HCG, Qual NEGATIVE Urine Color Urine Appearance Urine pH Ur Specific [place] Urine Protein Urine Glucose (UA) Urine Ketones Urine Blood Urine Nitrite (Reflex) Urine Bilirubin Urine Urobilinogen Leukocyte Esterase Rfl Urine RBC (Auto) Urine WBC (Reflex) Squamous Epi Cells Auto Calcium Oxalate Cr Auto Urine Mucus (Auto) Urine Ascorbic Acid Urine Opiates Screen Urine Methadone Screen Ur Barbiturates Screen Ur Phencyclidine Scrn Ur Amphetamines Screen U Benzodiazepines Scrn Urine Cocaine Screen U Marijuana (THC) Screen 08/26/19 08/26/19 08/26/19 15:36 15:36 18:42 WBC RBC Hgb Hct MCV MCH MCHC RDW Plt Count Lymph % (Auto) Josephine % (Auto) Eos % (Auto) Baso % (Auto) Absolute Neuts (auto) Absolute Lymphs (auto) Absolute Monos (auto) Absolute Eos (auto) Absolute Basos (auto) Seg Neutrophils % D-Dimer 0.39 Sodium Potassium Chloride Carbon Dioxide Anion Gap BUN Creatinine Est GFR ( Amer) Est GFR (MDRD) Non-Af Glucose Calcium Total Bilirubin Direct Bilirubin Neonat Total Bilirubin Neonat Direct Bilirubin Neonat Indirect Bili AST ALT Alkaline Phosphatase Troponin I Total Protein Albumin Lipase TSH Free T4 Free T3 pg/mL Serum HCG, Qual Urine Color JORDIN Urine Appearance SLIGHTLY-CLOUDY Urine pH 6.0 Ur Specific [place] 1.021 Urine Protein NEGATIVE Urine Glucose (UA) NEGATIVE Urine Ketones NEGATIVE Urine Blood NEGATIVE Urine Nitrite (Reflex) NEGATIVE Urine Bilirubin MODERATE H Urine Urobilinogen 4.0 H Leukocyte Esterase Rfl MODERATE H Urine RBC (Auto) 3 Urine WBC (Reflex) 10 Squamous Epi Cells Auto 6 Calcium Oxalate Cr Auto FEW Urine Mucus (Auto) OCC Urine Ascorbic Acid NEGATIVE Urine Opiates Screen NEGATIVE Urine Methadone Screen NEGATIVE Ur Barbiturates Screen NEGATIVE Ur Phencyclidine Scrn NEGATIVE Ur Amphetamines Screen NEGATIVE U Benzodiazepines Scrn NEGATIVE Urine Cocaine Screen NEGATIVE U Marijuana (THC) Screen UNCONFIRMED POSITIVE 08/26/19 08/26/19 18:42 18:42 WBC RBC Hgb Hct MCV MCH MCHC RDW Plt Count Lymph % (Auto) Josephine % (Auto) Eos % (Auto) Baso % (Auto) Absolute Neuts (auto) Absolute Lymphs (auto) Absolute Monos (auto) Absolute Eos (auto) Absolute Basos (auto) Seg Neutrophils % D-Dimer Sodium Potassium Chloride Carbon Dioxide Anion Gap BUN Creatinine Est GFR ( Amer) Est GFR (MDRD) Non-Af Glucose Calcium Total Bilirubin Direct Bilirubin Neonat Total Bilirubin Neonat Direct Bilirubin Neonat Indirect Bili AST ALT Alkaline Phosphatase Troponin I < 0.012 Total Protein Albumin Lipase TSH < 0.01 L Free T4 Free T3 pg/mL Serum HCG, Qual Urine Color Urine Appearance Urine pH Ur Specific [place] Urine Protein Urine Glucose (UA) Urine Ketones Urine Blood Urine Nitrite (Reflex) Urine Bilirubin Urine Urobilinogen Leukocyte Esterase Rfl Urine RBC (Auto) Urine WBC (Reflex) Squamous Epi Cells Auto Calcium Oxalate Cr Auto Urine Mucus (Auto) Urine Ascorbic Acid Urine Opiates Screen Urine Methadone Screen Ur Barbiturates Screen Ur Phencyclidine Scrn Ur Amphetamines Screen U Benzodiazepines Scrn Urine Cocaine Screen U Marijuana (THC) Screen (MAZIN STARK) Discharge <CAITLYN ARDON - Last Filed: 08/27/19 23:47> <MAIZN STARK - Last Filed: 08/28/19 15:35> - Discharge Clinical Impression: Hyperthyroidism, Tachycardia, Biliary obstruction Condition: Stable Disposition: [facility]
--- NOTE | 2019-08-26 18:36 | EKG REPORT ---
SEVERITY:- BORDERLINE ECG - SINUS TACHYCARDIA BORDERLINE PROLONGED QT INTERVAL : Confirmed by: Ariana Spears MD 26-Aug-2019 18:35:41
[2019-08-26 21:30] LABS: FREE T3 22.5 pg/mL (2.77-5.27); FREE T4 (FREE THYROXINE) 6.84 ng/dL (0.78-2.19)
--- NOTE | 2019-08-26 21:49 | RADIOLOGY REPORT (SQ) ---
EXAM DESCRIPTION: Right upper quadrant ultrasound CLINICAL HISTORY: 24 years Female; cp, elevated LFT, alk phos TECHNIQUE: Abdominal ultrasound was performed. COMPARISON: None. FINDINGS: Pancreas: Pancreas is obscured by overlying bowel gas. Liver: Measures 16.2 cm in length. Hepatic veins are patent. Portal vein is patent with hepatopedal flow. There is diffuse increased echogenicity of the liver consistent with fatty infiltration.. Gallbladder: The wall measures 2 mm. Multiple small echogenic foci are seen layering dependently in the gallbladder which shadow. These are stable with multiple small stones. No sonographic Ford's. No para cholecystic fluid. Common bile duct: 12 mm. The duct appears enlarged. No obvious stones are seen within the common bile duct Right kidney: . Measures 9.4 x 4.3 x 6.2 cm and has normal echogenicity. Blood flow is present. No hydronephrosis. Aorta:Visualized portions are within normal limits. IVC: Visualized portions are within normal limits. Ascites: No free fluid. IMPRESSION: Cholelithiasis. Dilatation of the common bile duct suggesting the possibility of stones within the bile duct.
[2019-08-26] MEDS ORDERED: ATENOLOL 50 MG TABLET PO ONE (23:16)
[2019-08-27] MEDS: NORMAL SALINE 1000 ML 1,000 ML IV PRN ×2 (06:55→19:02)
--- NOTE | 2019-08-27 17:01 | ER Document Report ---
Doctor's Note Notes: 08/27/19 16:58 Patient was signed out to me at shift change this morning. She is been resting comfortably in the room during her stay. She reported not having eaten anything in nearly 24 hours and was hungry. She was asymptomatic and we were unsure of when she would actually be transferred to [facility] given their bed status and lack of having a bed for her. In order to not deprive her of nutrition for an extended undue period, we instituted a clear liquid diet at this time. Shortly after, [facility] called back to ask about her condition and during the discussion they requested an MRCP prior to transfer. We have obliged and ordered the MRCP however MRI advised the patient must have an empty stomach before the scan can be done. They have deferred her scan for 3 hours at which point she will remain n.p.o. She will then undergo MRCP, once we have the results we will call Karen at the transfer center back for [facility] for further plan and transfer.
--- NOTE | 2019-08-27 19:15 | RADIOLOGY REPORT (SQ) ---
EXAM DESCRIPTION: MRI ABDOMEN WITHOUT COMPLETED DATE/TIME: 08/27/2019 5:47 pm COMPARISON: Abdominal ultrasound, 08/26/2018. TECHNIQUE: Noncontrast MRCP. Source and MIP images reviewed. LIMITATIONS: None. FINDINGS: GALLBLADDER: The gallbladder has normal size and contour. There are multiple echogenic ga llstones in the dependent gallbladder lumen. Several gallbladder folds are noted at the gallbladder neck. No gallbladder wall thickening or pericholecystic fluid. INTRAHEPATIC DUCTS: The intrahepatic ducts are mildly dilated measuring up to 6 mm diameter in the le ft hepatic lobe and 3 mm diameter in the right hepatic lobe. EXTRAHEPATIC DUCTS: The common duct is dilated measuring up to 13 mm diameter. There is a 5 mm stone in the distal common duct. Gradual tapering of the distal duct at the ampulla. PANCREAS: Generally homogeneous, no gross mass or significant signal alteration. No surrounding infl ammatory changes or fluid. Pancreatic duct is normal. LIVER, SPLEEN, KIDNEYS, ADRENALS: No significant abnormality. VESSELS: No evidence of aneurysm. Grossly appropriate flow voids in the major vascular structures. LUNG BASES: Grossly clear. OTHER: No other significant finding. IMPRESSION: 1. Choledocholithiasis with a 5 mm calculus in the distal common duct. There is moderate dilation of the common bile duct and mild dilation of the intrahepatic biliary ducts, suggestive of obstruction. Clinical correlation and correlation with laboratory values recommended. 2. Cholelithiasis. No evidence of acute cholecystitis. TECHNICAL DOCUMENTATION: JOB ID: [id number] [employer]- All Rights Reserved REASON FOR STUDY: ? stone in CBD, MRCP ? stone in CBD, MRCP. Elevated LFTs, chest pain, alkaline phosphatase elevation. Midsternal chest p ain, nausea, for 1 month. Hypertension. Reading location - IP/workstation name: [email or web address]
[2019-08-27 23:34] VITALS: BP 141/60
== END 2019-08-28 00:18 | disposition short-term general hospital (02) ==
LOC: ER 14:06
DX: E05.90 Thyrotoxicosis, unspecified without thyrotoxic crisis or storm (principal); R00.0 Tachycardia, unspecified; K83.1 Obstruction of bile duct; R07.9 Chest pain, unspecified; R05 Cough; R50.9 Fever, unspecified; R51 Headache; M79.89 Other specified soft tissue disorders; R11.2 Nausea with vomiting, unspecified; I10 Essential (primary) hypertension; Z79.899 Other long term (current) drug therapy
CPT/HCPCS: 93005; 96361; 36415; 84439; 83690; 84443; 84703; 85025; 80053; 81001; 84484; 80307; 84481; 85379; 83880; 71046; 76705; 93010; J3490; J7030; 96360; 99285